=== PATIENT | female | born 1935 | race Two or more races ===

== ENCOUNTER 2016-07-06 08:59 | Inpatient (IN) | payer MEDICAID, MEDICARE, OTHER ==
[~2016-07-06] VITALS: Ht 167.6 cm; Wt 89.8 kg
--- NOTE | 2016-07-06 00:33 | NUR ---
CECILIO NOTES RECEIVED TELEPHONE CONSENT FOR ANESTHESIA, BLOOD TRANSFUSION, AND PROCEDURE FROM SHANTE SCHMIDT @ . Addendum: 07/07/16 at 0035 by CARA BIRD RN DISREGARD ENTERED WRONG TIME
--- NOTE | 2016-07-06 09:10 | NUR ---
bibra from home due generalkized weakness and fever from home. Patient is awake, alert and oriented however speaks Nepali only. Pt able to follow simple commands thru gestures. Patient denies n/v. Skin is warm to touch and non diaphoretic. patient febrile at this time. Gowned and placed on tele monitor. IV inserted to rac #20. Blood sample sent to lab
--- NOTE | 2016-07-06 09:20 | NUR ---
urine sample sent to lab
[2016-07-06] MEDS ORDERED: IV NS 0.9% 1,000 ML ONE (09:23)
[2016-07-06] MEDS ORDERED: IV NS 0.9% 1,000 ML BAG IV ONE (09:30)
[2016-07-06 09:35] LABS: BASOPHILS % (AUTO) 0.1 % (0.0-2.0); HEMATOCRIT 38 % (33-45); HEMOGLOBIN 12.9 g/dL (11.5-14.8); LYMPHOCYTES # (AUTO) 0.4 /CMM (0.8-4.8); LYMPHOCYTES % (AUTO) 10.2 % (20.0-44.0); MEAN CORPUSCULAR HEMOGLOBIN 33 PG (26.0-33.0); MEAN CORPUSCULAR HGB CONC 34 g/dl (31.0-36.0); MEAN CORPUSCULAR VOLUME 97 fL (82-100); MONOCYTES % (AUTO) 0.5 % (2.0-12.0); NEUTROPHILS # (AUTO) 3.7 /CMM (1.8-8.9); NEUTROPHILS % (AUTO) 88.2 % (43.0-81.0); PLATELET COUNT (AUTO) 108 /CMM (150-450); RDW COEFFICIENT OF VARIATION 14.1 (11.5-15.0); RED BLOOD CELL COUNT(AUTO) 3.91 MIL/uL (4.0-5.2); WHITE BLOOD COUNT (AUTO) 4.2 K/uL (4.3-11.0)
[2016-07-06 09:46] LABS: ALANINE AMINOTRANSFERASE 41 U/L (12-78); ALBUMIN 2.8 g/dL (3.4-5.0); ALKALINE PHOSPHATASE 97 U/L (46-116); ASPARTATE AMINOTRANSFERASE 35 U/L (15-37); BILIRUBIN,DIRECT 0.2 mg/dL (0.0-0.2); BILIRUBIN,TOTAL 0.6 mg/dL (0.2-1.0); CALCIUM, SERUM 7.8 mg/dL (8.5-10.1); CARBON DIOXIDE 23 mmol/L (21-32); CHLORIDE 104 mmol/L (98-107); CREATININE 1.2 mg/dL (0.6-1.3); GLUCOSE 169 mg/dL (74-106); POTASSIUM 3.7 mmol/L (3.5-5.1); SODIUM SERUM 142 mmol/L (136-145); TOTAL PROTEIN, SERUM 6.4 g/dL (6.4-8.2); UREA NITROGEN, BLOOD 13 mg/dL (7-18)
[2016-07-06 09:48] LABS: TROPONIN I 0.023 ng/mL (0.00-0.056)
[2016-07-06] MEDS ORDERED: ACETAMINOPHEN 325 MG TABLET ONE (09:49)
[2016-07-06 10:00] LABS: INR 1.02 (0.87-1.13)
[2016-07-06] MEDS ORDERED: ACETAMINOPHEN 325 MG TABLET PO ONE (10:00)
[2016-07-06 10:10] LABS: LACTIC ACID 5.5 mmol/L (0.4-2.0)
[2016-07-06] MEDS ORDERED: CEFTRIAXONE 1GM BAG (ER ONLY) 50 ML IV ONE (10:26)
[2016-07-06] MEDS ORDERED: IV NS 0.9% 2,000 ML ONE (10:27)
[2016-07-06] MEDS ORDERED: IV NS 0.9% 1,000 ML IV ONE ×2 (10:30)
[2016-07-06] MEDS ORDERED: CEFTRIAXONE 1GM BAG (ER ONLY) 1 GM/50 ML PIGGYBACK IV ONE (10:30)
[2016-07-06] MEDS ORDERED: IV SET PRIMARY 1 EA INFUS.SET MC ONE (10:30)
[2016-07-06] MEDS ORDERED: TAMO20TA4 PO (10:36)
[2016-07-06] MEDS ORDERED: ATEN50TA PO (10:36)
[2016-07-06 10:37] LABS: APPEARANCE,URINE Slightly Cloudy (CLEAR); BILIRUBIN,URINE Negative (NEGATIVE); BLOOD, URINE Small Ery/uL (NEGATIVE); COLOR,URINE Yellow (YELLOW); KETONES,URINE Negative (NEGATIVE); LEUKOCYTE ESTERASE ,URINE Small (NEGATIVE); NITRITE, URINE Positive (NEGATIVE); PROTEIN,URINE Negative (NEGATIVE); UGLUCOSE Negative (NEGATIVE); UROBILINOGEN,URINE 0.2 EU/dL (0.2)
[2016-07-06 10:46] LABS: ADD URINE CULTURE YES; BACTERIA,URINE Many /HPF (None Seen); SQUAMOUS EPITHELIAL CELL,UR None Seen /HPF (None Seen); WBC,URINE 21-50 /HPF (0-3)
--- NOTE | 2016-07-06 12:00 | NUR ---
PAGED BINDERY HELPER PANEL.
[2016-07-06] MEDS ORDERED: MAGNESIUM HYDROXIDE 30 ML UDC PO PRN (13:00)
[2016-07-06] MEDS ORDERED: ZOLPIDEM TARTRATE 5 MG TABLET PO PRN (13:00)
[2016-07-06] MEDS ORDERED: ONDANSETRON HCL/PF 4 MG/2 ML VIAL IVP PRN (13:00)
[2016-07-06] MEDS ORDERED: Z GUARD REMEDY 2 OZ OINT TP PRN (13:00)
[2016-07-06] MEDS ORDERED: MAG HYDROX/AL HYDROX/SIMETH 30 ML UDC PO PRN (13:00)
[2016-07-06] MEDS ORDERED: HYDROCODONE/APAP 5/325MG 1 EACH TABLET PO PRN (13:00)
--- NOTE | 2016-07-06 15:13 | NUR ---
Report given to nurse Alegria for nikko
--- NOTE | 2016-07-06 15:16 | NUR ---
patient was transferred to [address] [place] [address]
[2016-07-06] MEDS ORDERED: IV SET PRIMARY PUMP SET 1 EA INFUS.SET MC ONE (15:30)
[2016-07-06] MEDS ORDERED: SECONDARY IV SET 1 EA INFUS.SET MC ONE (15:30)
--- NOTE | 2016-07-06 15:30 | NUR ---
MS RN NOTES RECEIVED PATIENT FROM ER ALERT, ORIENTED X3 KENYAN SPEAKING PATIENT. IN BED RESTING NO SOB OR ACUTE DISTRESS NOTED. ORIENTED TO FLOOR. CALL LIGHT WITHIN REACH. IV ON RIGHT AND LEFT ARM INTACT PATENT. BED IN LOW LOCKED POSITION. PATIENT ABLE TO AMBULATE TO BATHROOM INDEPENDENTLY. BODY ASSESSED SKIN INTACT. WILL CONTINUE TO MONITOR.
[2016-07-06] MEDS: IV 1/2NS 1000 ML 1,000 ML IV PRN (15:35)
[2016-07-06] MEDS: ENOXAPARIN SODIUM 40 MG/0.4 ML DISP.SYRIN SQ SCH (15:44)
[2016-07-06 16:00] VITALS: BP 104/64
--- NOTE | 2016-07-06 16:00 | NUR ---
MS RN NOTES CALL PLACED TO DAUGHTER HERIBERTO ASKED PATIENTS PAST MEDICAL HISTORY. AND MEDICATIONS PATIENT TAKING AT HOME.
--- NOTE | 2016-07-06 18:11 | NUR ---
MS RN NOTES PATIENT IN BED RESTING NO SOB OR ACUTE DISTRESS NOTED. ALL DUE MEDICATIONS GIVEN ALL NEEDS MET. PERIPHERAL IVS INTACT PATENT. WILL ENDORSE TO PM SHIFT ROSSY.
--- NOTE | 2016-07-06 19:30 | NUR ---
RN OPEN NOTES RECEIVED PATIENT AWAKE RESTING IN BED. A/O X3 KYRGYZ SPEAKING. NO SIGNS OF DISTRESS OF DISCOMFORT. BREATHING EVEN AND UNLABORED. DENIES ANY PAIN AT THIS TIME. IV ACCESS IN L HAND AND R WRIST WITH NS 0.45 INFUSIN. NO SIGNS OF REDNESS OR INFILTRATION. BED IN LOW LOCKED POSITION WITH SIDE RAILS X2. CALL LIGHT WITHIN REACH. WILL CONTINUE TO MONITOR.
--- NOTE | 2016-07-06 19:45 | NUR ---
RN NOTES RECEIVED TELEPHONE CONSENT FOR ANESTHESIA, BLOOD TRANSFUSION, AND PROCEDURE FROM SHANTE SCHMIDT @ . Addendum: 07/07/16 at 1431 by CARA BIRD RN DISREGARD DOCUMENT ERROR. WRONG PATIENT
[2016-07-06 20:00] VITALS: BP 137/69
[2016-07-06 20:03] VITALS: BP 137/69
[2016-07-06] MEDS: ACETAMINOPHEN 325 MG TABLET PO PRN (20:29)
[2016-07-06] MEDS: ATENOLOL 50 MG TABLET PO SCH (21:53)
[2016-07-06] MEDS ORDERED: TAMOXIFEN CITRATE 10 MG TABLET PO SCH (22:00)
[2016-07-07 06:48] LABS: BASOPHILS % (AUTO) 0.2 % (0.0-2.0); EOSINOPHILS % (AUTO) 0.1 % (0.0-6.0); HEMATOCRIT 36 % (33-45); LYMPHOCYTES # (AUTO) 0.8 /CMM (0.8-4.8); LYMPHOCYTES % (AUTO) 10.9 % (20.0-44.0); MEAN CORPUSCULAR HEMOGLOBIN 33 PG (26.0-33.0); MEAN CORPUSCULAR HGB CONC 34 g/dl (31.0-36.0); MEAN CORPUSCULAR VOLUME 98 fL (82-100); MONOCYTES # (AUTO) 0.3 /CMM (0.1-1.30); NEUTROPHILS # (AUTO) 6.3 /CMM (1.8-8.9); NEUTROPHILS % (AUTO) 84.8 % (43.0-81.0); PLATELET COUNT (AUTO) 86 /CMM (150-450); RDW COEFFICIENT OF VARIATION 14.3 (11.5-15.0); RED BLOOD CELL COUNT(AUTO) 3.66 MIL/uL (4.0-5.2); WHITE BLOOD COUNT (AUTO) 7.5 K/uL (4.3-11.0)
[2016-07-07 07:11] LABS: CALCIUM, SERUM 7.7 mg/dL (8.5-10.1); MAGNESIUM 1.6 mg/dL (1.8-2.4); PHOSPHORUS 2.6 mg/dL (2.5-4.9); POTASSIUM 3.6 mmol/L (3.5-5.1); THYROID STIMULATING HORMONE 2.73 uIU/mL (0.358-3.74)
--- NOTE | 2016-07-07 07:31 | NUR ---
RN CLOSING NOTES PATIENT RESTING IN BED. A/O X3 BARBADIAN SPEAKING. NO SIGNS OF DISTRESS OF DISCOMFORT. BREATHING EVEN AND UNLABORED. DENIES ANY PAIN AT THIS TIME. IV ACCESS IN L HAND AND R WRIST WITH NS 0.45 INFUSING NO SIGNS OF REDNESS OR INFILTRATION. ALL NEEDS MET THROUGHOUT SHIFT. NO SIGNIFICANT CHANGES THROUGH THE NIGHT. BED IN LOW LOCKED POSITION WITH SIDE RAILS X2. CALL LIGHT WITHIN REACH. ENDORSED TO AM SHIFT FOR ROSSY.
[2016-07-07 08:00] VITALS: BP 96/50
--- NOTE | 2016-07-07 08:00 | NUR ---
RN AM NOTES PATIENT RECEIVED IN STABLE CONDITION, ASLEEP BUT AROUSABLE, NO COMPLAINTS OF PAIN OR DISCOMFORT. PIV LINES PATENT AND RUNNING FLUIDS. PATIENT TOLERATING FLUIDS WELL. WILL CONTINUE TO MONITOR
[2016-07-07] MEDS ORDERED: IV SET PRIMARY PUMP SET 1 EA INFUS.SET MC ONE (09:13)
[2016-07-07] MEDS: IV 1/2NS 1000 ML 1,000 ML IV PRN (09:22)
[2016-07-07] MEDS: PANTOPRAZOLE 40 MG TABLET.DR PO SCH (09:22)
[2016-07-07] MEDS: ACETAMINOPHEN 325 MG TABLET PO PRN ×2 (09:57→21:08)
--- NOTE | 2016-07-07 09:57 | NUR ---
PATIENT HAS HEADACHE PAIN LEVEL OF 3, ADMINISTERED TYLENOL PRN
[2016-07-07 10:12] LABS: BAND % (MANUAL) 3 % (0.0-5.0); NEUTROPHILS % (MANUAL) 85 (42-76)
[2016-07-07 10:13] LABS: ANISOCYTOSIS 1+; BASOPHILS % (MANUAL) 0 % (0.0-2.0); EOSINOPHILS % (MANUAL) 0 % (0-4); LYMPHOCYTES % (MANUAL) 11 % (16-48); MONOCYTES % (MANUAL) 1 % (0-11.0); PLATELET ESTIMATE DECREASED
[2016-07-07] MEDS ORDERED: ZOLPIDEM TARTRATE 5 MG TABLET PO PRN (11:00)
[2016-07-07] MEDS: Magnesium 1GM/D5W 100ML PREMIX 100 ML IV SCH ×3 (11:30→17:22)
[2016-07-07] MEDS ORDERED: SECONDARY IV SET 1 EA INFUS.SET MC ONE (13:16)
[2016-07-07] MEDS: ENOXAPARIN SODIUM 40 MG/0.4 ML DISP.SYRIN SQ SCH ×2 (15:00→17:19)
[2016-07-07 16:00] VITALS: BP 100/64
--- NOTE | 2016-07-07 17:20 | NUR ---
PLATELETS 86, PT, APTT, INR WNL, ADMINISTERED ENOXAPARIN ORDERED
--- NOTE | 2016-07-07 17:37 | NUR ---
PATIENT USING RESTROOM FREQUENTLY AND WANTING TO STRETCH. INFUSIONS INTERRUPTED, BUT STILL ADMINISTERING MG DOSES ORDERED Addendum: 07/07/16 at 1738 by AYLIN BEAVERS RN WILL ENDORSE TO NEXT SHIFT
--- NOTE | 2016-07-07 18:19 | NUR ---
RN PM NOTES PATIENT FINISHING DINNER, CALM AND RELAXED IN BED. TOLERATING IV FLUIDS WELL. TOLERATING DIET WELL. NO COMPLAINTS OF PAIN OR HEADACHE. NO SOB OR DISTRESS. MG DRIP STILL INFUSING WELL. WILL ENDORSE TO NEXT SHIFT.
--- NOTE | 2016-07-07 19:10 | NUR ---
RN OPEN NOTES RECEIVED PATIENT AWAKE RESTING IN BED. A/O X3 SYRIAC SPEAKING BUT ABLE TO UNDERSTAND KISWAHILI. NO SIGNS OF DISTRESS OR DISCOMFORT. BREATHING EVEN AND UNLABORED. DENIES ANY PAIN AT THIS TIME. IV ACCESS IN L HAND AND R WRIST WITH MAG CURRENTLY INFUSING. NO SIGNS OF REDNESS OR INFILTRATION. BED IN LOW LOCKED POSITION WITH SIDE RAILS X2. CALL LIGHT WITHIN REACH. WILL CONTINUE TO MONITOR.
[2016-07-07 20:00] VITALS: BP 154/78
[2016-07-07] MEDS: ATENOLOL 50 MG TABLET PO SCH (21:08)
[2016-07-07] MEDS: TAMOXIFEN CITRATE 10 MG TABLET PO SCH (21:09)
--- NOTE | 2016-07-07 21:15 | NUR ---
RN NOTES ADMINISTERED TYLENOL 650 MG PRN FOR ELEV TEMP OF 103.0. COOL DOWN MEASURES INITIATED. WILL CONTINUE TO MONITOR.
--- NOTE | 2016-07-07 22:20 | NUR ---
RN NOTES PATIENT TEMP NOW 98.5. WILL CONTINUE TO MONITOR.
[2016-07-08 06:11] LABS: BASOPHILS % (AUTO) 0.2 % (0.0-2.0); HEMATOCRIT 33 % (33-45); HEMOGLOBIN 11.3 g/dL (11.5-14.8); LYMPHOCYTES # (AUTO) 1.1 /CMM (0.8-4.8); LYMPHOCYTES % (AUTO) 21.9 % (20.0-44.0); MEAN CORPUSCULAR HEMOGLOBIN 33 PG (26.0-33.0); MEAN CORPUSCULAR HGB CONC 34 g/dl (31.0-36.0); MEAN CORPUSCULAR VOLUME 98 fL (82-100); MONOCYTES # (AUTO) 0.3 /CMM (0.1-1.30); NEUTROPHILS # (AUTO) 3.4 /CMM (1.8-8.9); NEUTROPHILS % (AUTO) 69.9 % (43.0-81.0); PLATELET COUNT (AUTO) 73 /CMM (150-450); RDW COEFFICIENT OF VARIATION 14.1 (11.5-15.0); WHITE BLOOD COUNT (AUTO) 4.9 K/uL (4.3-11.0)
[2016-07-08 06:23] LABS: CALCIUM, SERUM 7.7 mg/dL (8.5-10.1); CREATININE 0.9 mg/dL (0.6-1.3); MAGNESIUM 2.3 mg/dL (1.8-2.4); PHOSPHORUS 2.6 mg/dL (2.5-4.9); POTASSIUM 3.3 mmol/L (3.5-5.1)
[2016-07-08 08:00] VITALS: BP 135/95
--- NOTE | 2016-07-08 08:03 | NUR ---
RN CLOSING NOTES PATIENT AWAKE RESTING IN BED. A/O X3 MICRONESIAN SPEAKING BUT ABLE TO UNDERSTAND DIVEHI. NO SIGNS OF DISTRESS OR DISCOMFORT. BREATHING EVEN AND UNLABORED. DENIES ANY PAIN AT THIS TIME. IV ACCESS IN L HAND AND R WRIST WITH 1/2 NS CURRENTLY INFUSING. NO SIGNS OF REDNESS OR INFILTRATION. ALL NEEDS MET THROUGHOUT SHIFT. PATIENT KEPT CLEAN DRY AND COMFORTABLE. NO SIGNIFICANT CHANGES THROUGH THE NIGHT. BED IN LOW LOCKED POSITION WITH SIDE RAILS X2. CALL LIGHT WITHIN REACH. ENDORSED TO AM SHIFT FOR ROSSY.
--- NOTE | 2016-07-08 08:08 | NUR ---
RN AM NOTES RECEIVED PATIENT IN STABLE CONDITION, AMBULATORY WITH NO SOB. ABLE TO USE RESTROOM UNASSISTED. NO FEVER, NO DISTRESS, NO PAIN. TOLERATING IV FLUIDS WELL. WILL CONTINUE TO MONITOR
[2016-07-08] MEDS: TAMOXIFEN CITRATE 10 MG TABLET PO SCH (09:00)
[2016-07-08] MEDS: PANTOPRAZOLE 40 MG TABLET.DR PO SCH (09:00)
[2016-07-08 10:08] LABS: ANISOCYTOSIS 1+; BAND % (MANUAL) 3 % (0.0-5.0); EOSINOPHILS % (MANUAL) 1 % (0-4); LYMPHOCYTES % (MANUAL) 24 % (16-48); MONOCYTES % (MANUAL) 5 % (0-11.0); NEUTROPHILS % (MANUAL) 67 (42-76); PLATELET ESTIMATE DECREASED
[2016-07-08] MEDS ORDERED: POTASSIUM CHLORIDE 20 MEQ TAB.PRT.SR PO SCH (10:30)
[2016-07-08 12:03] LABS: IRON, SERUM 20 ug/dl (50-175); TOTAL IRON BINDING CAPACITY 231 ug/dl (250-450)
[2016-07-08] MEDS ORDERED: LEVO500T15 PO (12:17)
[2016-07-08] MEDS ORDERED: PNEUMOCOCCAL 23-VAL P-SAC VAC 0.5 ML VIAL SQ ONE (12:30)
[2016-07-08] MEDS ORDERED: FLU VACC QS 2016-17(36MOS+)/PF 0.5 ML DISP.SYRIN IM ONE (12:30)
[2016-07-08] MEDS ORDERED: LEVOFLOXACIN 750 MG /D5W 150ML 750 MG in PREMIX 1 EA IV SCH (13:00)
[2016-07-08] MEDS ORDERED: SECONDARY IV SET 1 EA INFUS.SET MC ONE (13:01)
[2016-07-08 13:14] LABS: D-DIMER 0.82 mg/L(FEU (0.17-0.50); INR 1.02 (0.87-1.13)
[2016-07-08 14:14] LABS: BASOPHILS % (AUTO) 0.2 % (0.0-2.0); EOSINOPHILS % (AUTO) 0.8 % (0.0-6.0); HEMATOCRIT 35 % (33-45); HEMOGLOBIN 11.6 g/dL (11.5-14.8); LYMPHOCYTES # (AUTO) 1.2 /CMM (0.8-4.8); LYMPHOCYTES % (AUTO) 21.4 % (20.0-44.0); MEAN CORPUSCULAR HEMOGLOBIN 33 PG (26.0-33.0); MEAN CORPUSCULAR HGB CONC 34 g/dl (31.0-36.0); MEAN CORPUSCULAR VOLUME 98 fL (82-100); MONOCYTES # (AUTO) 0.5 /CMM (0.1-1.30); MONOCYTES % (AUTO) 8.2 % (2.0-12.0); NEUTROPHILS # (AUTO) 3.9 /CMM (1.8-8.9); NEUTROPHILS % (AUTO) 69.4 % (43.0-81.0); PLATELET COUNT (AUTO) 79 /CMM (150-450); RDW COEFFICIENT OF VARIATION 14.1 (11.5-15.0); RED BLOOD CELL COUNT(AUTO) 3.56 MIL/uL (4.0-5.2); WHITE BLOOD COUNT (AUTO) 5.7 K/uL (4.3-11.0)
[2016-07-08 16:00] VITALS: BP 120/70
--- NOTE | 2016-07-08 18:53 | NUR ---
RN PM NOTES PATIENT TO BE PICKED UP FOR DISCHARGE BY FAMILY WHO WILL BRING HER CLOTHES AND SIGN DISCHARGE PAPERWORK. WILL ENDORSE TO NEXT SHIFT. PATIENT IN STABLE CONDITION, RESTING IN BED.
--- NOTE | 2016-07-08 19:19 | NUR ---
SQL SSRS DEVELOPER NOTES PATIENT LEFT WITH DAUGHTER VIA PRIVATE CAR WITH BELONGINGS AND DISCHARGE PACKET WITH RX. NO SOB, DISTRESS, PAIN OR FEVER NOTED. PATIENT LEFT FACILITY SAFELY, ESCORTED BY STAFF MEMBER AND DAUGHTER IN WHEELCHAIR
== END 2016-07-08 19:10 | disposition home or self-care (01) | DRG 690 ==
LOC: ER 09:02 → TELE 14:47 → MED 14:48
DX: N39.0 Urinary tract infection, site not specified (principal); E44.0 Moderate protein-calorie malnutrition; D68.59 Other primary thrombophilia; J98.11 Atelectasis; Z90.10 Acquired absence of unspecified breast and nipple; I11.9 Hypertensive heart disease without heart failure; Z85.3 Personal history of malignant neoplasm of breast; D69.6 Thrombocytopenia, unspecified; B96.20 Unspecified Escherichia coli [E. coli] as the cause of diseases classified elsewhere; E87.6 Hypokalemia; E66.9 Obesity, unspecified; Z79.810 Long term (current) use of selective estrogen receptor modulators (SERMs); Z87.440 Personal history of urinary (tract) infections
CPT/HCPCS: 36415; 71010-TC; 80048-TC; 80061-TC; 80076-TC; 81000-TC; 83540-TC; 83605-TC; 83735-TC; 84100-TC; 84443-TC; 84484-TC; 85025-TC; 85396; 85730-TC; 87040-TC; 87081-TC; 87086-TC; 87186-TC; 90732; A4216; A4606; J0696; J1650; J1956; J3475; J3490; J7030; Q2036; Z7610

== ENCOUNTER 2017-09-01 09:27 | Inpatient (IN) | payer OTHER ==
[~2017-09-01] VITALS: Ht 160 cm; Wt 88.9 kg
[~2017-09-01 09:27] MED LIST: ATEN50TA PO; LEVO500T75 PO; TAMO20TA4 PO
[2017-09-01] MEDS ORDERED: ACETAMINOPHEN ES 500 MG TABLET ONE (09:33)
[2017-09-01] MEDS ORDERED: ALPR0.5T PO (09:41)
[2017-09-01] MEDS ORDERED: PANT40TA2 PO (09:41)
[2017-09-01 09:50] LABS: BASOPHILS # (AUTO) 0.1 /CMM (0.0-0.2); BASOPHILS % (AUTO) 1.1 % (0.0-2.0); EOSINOPHILS % (AUTO) 0.6 % (0.0-6.0); HEMATOCRIT 40 % (33-45); LYMPHOCYTES # (AUTO) 0.9 /CMM (0.8-4.8); LYMPHOCYTES % (AUTO) 15.6 % (20.0-44.0); MEAN CORPUSCULAR HGB CONC 33 g/dl (31.0-36.0); MEAN CORPUSCULAR VOLUME 95 fL (82-100); MONOCYTES # (AUTO) 0.1 /CMM (0.1-1.30); MONOCYTES % (AUTO) 1.3 % (2.0-12.0); NEUTROPHILS # (AUTO) 4.7 /CMM (1.8-8.9); NEUTROPHILS % (AUTO) 81.4 % (43.0-81.0); PLATELET COUNT (AUTO) 149 /CMM (150-450); RDW COEFFICIENT OF VARIATION 13.7 (11.5-15.0); RED BLOOD CELL COUNT(AUTO) 4.18 MIL/uL (4.0-5.2); WHITE BLOOD COUNT (AUTO) 5.8 K/uL (4.3-11.0)
[2017-09-01 09:58] LABS: CARBON DIOXIDE 18 mmol/L (21-32); CHLORIDE 103 mmol/L (98-107); CREATININE 1.4 mg/dL (0.6-1.3); GLUCOSE 178 mg/dL (74-106); POTASSIUM 3.8 mmol/L (3.5-5.1); SODIUM SERUM 137 mmol/L (136-145); UREA NITROGEN, BLOOD 17 mg/dL (7-18)
[2017-09-01] MEDS ORDERED: IV NS 0.9% 1,000 ML BAG IV ONE (10:00)
[2017-09-01] MEDS ORDERED: MEROPENEM 1 G in IV NS 0.9% 100 ML IV ONE (10:00)
[2017-09-01] MEDS ORDERED: ACETAMINOPHEN ES 500 MG TABLET PO ONE (10:00)
[2017-09-01 10:03] LABS: INR 1.03 (0.87-1.13)
[2017-09-01 10:05] LABS: TROPONIN I < 0.017 ng/mL (0.00-0.056)
[2017-09-01 10:14] LABS: ALANINE AMINOTRANSFERASE 47 U/L (12-78); ALBUMIN 2.8 g/dL (3.4-5.0); ALKALINE PHOSPHATASE 111 U/L (46-116); ASPARTATE AMINOTRANSFERASE 50 U/L (15-37); BILIRUBIN,DIRECT 0.2 mg/dL (0.0-0.2); BILIRUBIN,TOTAL 0.7 mg/dL (0.2-1.0); TOTAL PROTEIN, SERUM 7.1 g/dL (6.4-8.2)
[2017-09-01 10:15] LABS: APPEARANCE,URINE Slightly Cloudy (CLEAR); BILIRUBIN,URINE Negative (NEGATIVE); BLOOD, URINE Trace-intact Ery/uL (NEGATIVE); COLOR,URINE Yellow (YELLOW); KETONES,URINE Trace (NEGATIVE); LEUKOCYTE ESTERASE ,URINE Small (NEGATIVE); NITRITE, URINE Positive (NEGATIVE); PROTEIN,URINE Trace mg/dl (NEGATIVE); UGLUCOSE Negative (NEGATIVE); UROBILINOGEN,URINE 0.2 EU/dL (0.2)
[2017-09-01 10:30] LABS: BACTERIA,URINE Many /HPF (None Seen); SQUAMOUS EPITHELIAL CELL,UR Few /HPF (None Seen); WBC,URINE 20-50 /HPF (0-3)
[2017-09-01 12:00] VITALS: BP 122/55
[2017-09-01] MEDS ORDERED: ALPRAZOLAM 0.5 MG TABLET PO PRN (12:30)
[2017-09-01] MEDS ORDERED: IV NS 0.9% 1,000 ML BAG IV PRN (12:30)
[2017-09-01] MEDS ORDERED: HYDROCODONE/APAP 5/325MG 1 EACH TABLET PO PRN (12:30)
[2017-09-01] MEDS ORDERED: CEFTRIAXONE 1 G in IV D5W 50 ML IV SCH (13:00)
[2017-09-01] MEDS: IV NS 0.9% 1,000 ML IV PRN (14:20)
[2017-09-01] MEDS: PANTOPRAZOLE 40 MG VIAL IV SCH (15:30)
[2017-09-01] MEDS ORDERED: ONDANSETRON HCL/PF 4 MG/2 ML VIAL IV PRN (15:30)
[2017-09-01 16:00] VITALS: BP 102/53
[2017-09-01 20:00] VITALS: BP 112/65
[2017-09-01] MEDS: ACETAMINOPHEN 325 MG TABLET PO PRN (20:24)
[2017-09-01] MEDS: ATENOLOL 50 MG TABLET PO SCH (22:00)
[2017-09-01] MEDS: TAMOXIFEN CITRATE 10 MG TABLET PO SCH (22:16)
[2017-09-02] VITALS (8 sets, daily range): BP systolic 92–131; BP diastolic 6–67
[2017-09-02] MEDS ORDERED: ACETAMINOPHEN 325 MG TABLET PO ONE (02:00)
[2017-09-02] MEDS: IV NS 0.9% 1,000 ML IV PRN ×2 (03:54→18:37)
[2017-09-02] MEDS ORDERED: PIPERACILLIN /TAZOBACTAM 3.375 G VIAL IV ONE (05:22)
[2017-09-02] MEDS: PIPERACILLIN /TAZOBACTAM 3.375 G in IV D5W 50 ML IV SCH ×4 (05:29→23:22)
[2017-09-02 06:41] LABS: CALCIUM, SERUM 7.6 mg/dL (8.5-10.1); CARBON DIOXIDE 23 mmol/L (21-32); CHLORIDE 107 mmol/L (98-107); CREATININE 0.9 mg/dL (0.6-1.3); GLUCOSE 133 mg/dL (74-106); POTASSIUM 3.5 mmol/L (3.5-5.1); SODIUM SERUM 140 mmol/L (136-145); UREA NITROGEN, BLOOD 11 mg/dL (7-18)
[2017-09-02 06:50] LABS: EOSINOPHILS % (AUTO) 0.2 % (0.0-6.0); HEMATOCRIT 31 % (33-45); HEMOGLOBIN 10.3 g/dL (11.5-14.8); LYMPHOCYTES # (AUTO) 0.8 /CMM (0.8-4.8); LYMPHOCYTES % (AUTO) 9.9 % (20.0-44.0); MEAN CORPUSCULAR HGB CONC 34 g/dl (31.0-36.0); MEAN CORPUSCULAR VOLUME 95 fL (82-100); MONOCYTES # (AUTO) 0.3 /CMM (0.1-1.30); MONOCYTES % (AUTO) 3.4 % (2.0-12.0); NEUTROPHILS # (AUTO) 7.3 /CMM (1.8-8.9); NEUTROPHILS % (AUTO) 86.5 % (43.0-81.0); PLATELET COUNT (AUTO) 96 /CMM (150-450); RDW COEFFICIENT OF VARIATION 14.9 (11.5-15.0); RED BLOOD CELL COUNT(AUTO) 3.22 MIL/uL (4.0-5.2); WHITE BLOOD COUNT (AUTO) 8.4 K/uL (4.3-11.0)
[2017-09-02] MEDS ORDERED: PANTOPRAZOLE 40 MG TABLET.DR PO SCH (07:30)
[2017-09-02 08:51] LABS: BAND % (MANUAL) 6 % (0.0-5.0); LYMPHOCYTES % (MANUAL) 11 % (16-48); MONOCYTES % (MANUAL) 3 % (0-11.0); NEUTROPHILS % (MANUAL) 80 (42-76)
[2017-09-02] MEDS: PANTOPRAZOLE 40 MG VIAL IV SCH (17:38)
[2017-09-02] MEDS: ACETAMINOPHEN 325 MG TABLET PO PRN (17:42)
[2017-09-02] MEDS: ATENOLOL 50 MG TABLET PO SCH (21:50)
[2017-09-02] MEDS: TAMOXIFEN CITRATE 10 MG TABLET PO SCH (21:50)
[2017-09-03] MEDS: PIPERACILLIN /TAZOBACTAM 3.375 G in IV D5W 50 ML IV SCH (05:07)
[2017-09-03] MEDS: IV NS 0.9% 1,000 ML IV PRN (05:11)
[2017-09-03 06:35] LABS: CALCIUM, SERUM 7.4 mg/dL (8.5-10.1); CARBON DIOXIDE 24 mmol/L (21-32); CHLORIDE 108 mmol/L (98-107); CREATININE 0.8 mg/dL (0.6-1.3); GLUCOSE 126 mg/dL (74-106); POTASSIUM 3.6 mmol/L (3.5-5.1); SODIUM SERUM 141 mmol/L (136-145); UREA NITROGEN, BLOOD 6 mg/dL (7-18)
[2017-09-03 06:41] LABS: BASOPHILS % (AUTO) 0.2 % (0.0-2.0); EOSINOPHILS % (AUTO) 1.4 % (0.0-6.0); HEMATOCRIT 32 % (33-45); HEMOGLOBIN 10.9 g/dL (11.5-14.8); LYMPHOCYTES # (AUTO) 1.1 /CMM (0.8-4.8); LYMPHOCYTES % (AUTO) 20.7 % (20.0-44.0); MEAN CORPUSCULAR HGB CONC 34 g/dl (31.0-36.0); MEAN CORPUSCULAR VOLUME 95 fL (82-100); MONOCYTES # (AUTO) 0.4 /CMM (0.1-1.30); MONOCYTES % (AUTO) 8.1 % (2.0-12.0); NEUTROPHILS # (AUTO) 3.8 /CMM (1.8-8.9); NEUTROPHILS % (AUTO) 69.6 % (43.0-81.0); PLATELET COUNT (AUTO) 96 /CMM (150-450); RDW COEFFICIENT OF VARIATION 15.1 (11.5-15.0); RED BLOOD CELL COUNT(AUTO) 3.38 MIL/uL (4.0-5.2); WHITE BLOOD COUNT (AUTO) 5.5 K/uL (4.3-11.0)
[2017-09-03 08:00] VITALS: BP 118/66
[2017-09-03] MEDS ORDERED: LEVO500T75 PO (08:18)
[2017-09-03 09:28] LABS: BAND % (MANUAL) 3 % (0.0-5.0); EOSINOPHILS % (MANUAL) 3 % (0-4); LYMPHOCYTES % (MANUAL) 19 % (16-48); MONOCYTES % (MANUAL) 9 % (0-11.0); NEUTROPHILS % (MANUAL) 66 (42-76)
== END 2017-09-03 10:15 | disposition home or self-care (01) | DRG 872 ==
LOC: ER 09:28 → TELE 11:46 → MED 09-02 09:27
PROVIDERS: ADMIT Internal Medicine; ATTEND Internal Medicine
DX: A41.9 Sepsis, unspecified organism (principal); N17.9 Acute kidney failure, unspecified; E87.2 Acidosis; E86.0 Dehydration; N39.0 Urinary tract infection, site not specified; I10 Essential (primary) hypertension; Z85.3 Personal history of malignant neoplasm of breast; Z90.10 Acquired absence of unspecified breast and nipple; Z79.810 Long term (current) use of selective estrogen receptor modulators (SERMs)
CPT/HCPCS: 36415; 71045-TC; 76770-TC; 80048-TC; 80076-TC; 81000-TC; 83605-TC; 84484-TC; 85025-TC; 85730-TC; 87040-TC; 87081-TC; 87086-TC; 87186-TC; A4216; A4606; C9113; J0696; J2185; J2543; J7030; J7060; Z7610

== ENCOUNTER 2018-04-20 12:57 | Inpatient (IN) | payer OTHER ==
[2018-04-20] VITALS (12 sets, daily range): BP systolic 88–127; BP diastolic 41–65
[~2018-04-20] VITALS: Ht 157.5 cm; Wt 74.8 kg
[~2018-04-20 12:57] MED LIST changes: +ALPR0.5T PO; +PANT40TA2 PO
[2018-04-20 13:34] LABS: BASOPHILS % (AUTO) 0.7 % (0.0-2.0); EOSINOPHILS % (AUTO) 1.8 % (0.0-6.0); HEMATOCRIT 24 % (33-45); LYMPHOCYTES % (AUTO) 16.6 % (20.0-44.0); MEAN CORPUSCULAR HGB CONC 29 g/dl (31.0-36.0); MEAN CORPUSCULAR VOLUME 74 fL (82-100); MONOCYTES # (AUTO) 0.6 /CMM (0.1-1.30); MONOCYTES % (AUTO) 9.5 % (2.0-12.0); NEUTROPHILS # (AUTO) 4.4 /CMM (1.8-8.9); NEUTROPHILS % (AUTO) 71.4 % (43.0-81.0); PLATELET COUNT (AUTO) 204 /CMM (150-450); RED BLOOD CELL COUNT(AUTO) 3.28 MIL/uL (4.0-5.2); WHITE BLOOD COUNT (AUTO) 6.2 K/uL (4.3-11.0)
[2018-04-20 13:35] LABS: HEMOGLOBIN 6.9 g/dL (11.5-14.8)
[2018-04-20 13:44] LABS: CALCIUM, SERUM 7.9 mg/dL (8.5-10.1); CARBON DIOXIDE 22 mmol/L (21-32); CHLORIDE 106 mmol/L (98-107); CREATININE 0.9 mg/dL (0.6-1.3); GLUCOSE 205 mg/dL (74-106); POTASSIUM 4.1 mmol/L (3.5-5.1); SODIUM SERUM 140 mmol/L (136-145); UREA NITROGEN, BLOOD 15 mg/dL (7-18)
[2018-04-20] MEDS ORDERED: ERGO500040 PO (13:47)
[2018-04-20 13:50] LABS: ALANINE AMINOTRANSFERASE 26 U/L (12-78); ALBUMIN 2.3 g/dL (3.4-5.0); ALKALINE PHOSPHATASE 101 U/L (46-116); ASPARTATE AMINOTRANSFERASE 30 U/L (15-37); BILIRUBIN,DIRECT 0.1 mg/dL (0.0-0.2); BILIRUBIN,TOTAL 0.2 mg/dL (0.2-1.0); TOTAL PROTEIN, SERUM 6.2 g/dL (6.4-8.2)
[2018-04-20] MEDS ORDERED: FAMOTIDINE/PF INJ 20 MG/2 ML VIAL IV ONE ×2 (14:30→14:45)
[2018-04-20 14:58] LABS: EOSINOPHILS % (MANUAL) 1 % (0-4); LYMPHOCYTES % (MANUAL) 16 % (16-48); MONOCYTES % (MANUAL) 2 % (0-11.0); NEUTROPHILS % (MANUAL) 81 (42-76)
[2018-04-20] MEDS ORDERED: ONDANSETRON HCL/PF 4 MG/2 ML VIAL IVP PRN (17:30)
[2018-04-20] MEDS ORDERED: ALPRAZOLAM 0.5 MG TABLET PO PRN (17:30)
[2018-04-20] MEDS ORDERED: Z GUARD REMEDY 2 OZ OINT TP PRN (17:30)
[2018-04-20] MEDS: ACETAMINOPHEN 325 MG TABLET PO PRN (17:55)
[2018-04-20] MEDS: TAMOXIFEN CITRATE 10 MG TABLET PO SCH (21:44)
[2018-04-20] MEDS: ATENOLOL 50 MG TABLET PO SCH (21:47)
[2018-04-20 22:30] LABS: HEMATOCRIT 24 % (33-45); HEMOGLOBIN 7.4 g/dL (11.5-14.8); MEAN CORPUSCULAR HGB CONC 31 g/dl (31.0-36.0); MEAN CORPUSCULAR VOLUME 72 fL (82-100); PLATELET COUNT (AUTO) 182 /CMM (150-450); RED BLOOD CELL COUNT(AUTO) 3.32 MIL/uL (4.0-5.2)
[2018-04-21] VITALS: BP 98/59
[2018-04-21 03:51] LABS: BASOPHILS % (AUTO) 0.7 % (0.0-2.0); EOSINOPHILS % (AUTO) 1.7 % (0.0-6.0); HEMATOCRIT 25 % (33-45); HEMOGLOBIN 7.6 g/dL (11.5-14.8); LYMPHOCYTES # (AUTO) 1.1 /CMM (0.8-4.8); LYMPHOCYTES % (AUTO) 21.6 % (20.0-44.0); MEAN CORPUSCULAR HGB CONC 31 g/dl (31.0-36.0); MEAN CORPUSCULAR VOLUME 73 fL (82-100); MONOCYTES # (AUTO) 0.4 /CMM (0.1-1.30); MONOCYTES % (AUTO) 9.1 % (2.0-12.0); NEUTROPHILS # (AUTO) 3.3 /CMM (1.8-8.9); NEUTROPHILS % (AUTO) 66.9 % (43.0-81.0); PLATELET COUNT (AUTO) 172 /CMM (150-450); RED BLOOD CELL COUNT(AUTO) 3.38 MIL/uL (4.0-5.2); WHITE BLOOD COUNT (AUTO) 4.9 K/uL (4.3-11.0)
[2018-04-21 04:00] VITALS: BP 116/61
[2018-04-21 04:19] LABS: IRON, SERUM 29 ug/dl (50-175); TOTAL IRON BINDING CAPACITY 336 ug/dl (250-450)
[2018-04-21 04:25] LABS: CHOLESTEROL 71 mg/dL (<200); HDL CHOLESTEROL 20 mg/dL (40-60); LDL 47 mg/dL (0-99); THYROID STIMULATING HORMONE 6.376 uIU/mL (0.358-3.74); TRIGLYCERIDES 46 mg/dL (30-150)
[2018-04-21 05:37] LABS: ALANINE AMINOTRANSFERASE 22 U/L (12-78); ALBUMIN 2.1 g/dL (3.4-5.0); ALKALINE PHOSPHATASE 69 U/L (46-116); ASPARTATE AMINOTRANSFERASE 38 U/L (15-37); BILIRUBIN,TOTAL 0.6 mg/dL (0.2-1.0); CALCIUM, SERUM 7.8 mg/dL (8.5-10.1); CARBON DIOXIDE 23 mmol/L (21-32); CHLORIDE 108 mmol/L (98-107); CREATININE 0.9 mg/dL (0.6-1.3); GLUCOSE 123 mg/dL (74-106); MAGNESIUM 1.8 mg/dL (1.8-2.4); PHOSPHORUS 2.2 mg/dL (2.5-4.9); POTASSIUM 3.6 mmol/L (3.5-5.1); SODIUM SERUM 142 mmol/L (136-145); TOTAL PROTEIN, SERUM 5.7 g/dL (6.4-8.2); UREA NITROGEN, BLOOD 10 mg/dL (7-18)
[2018-04-21] MEDS ORDERED: PANTOPRAZOLE 40 MG TABLET.DR PO SCH (07:30)
[2018-04-21 08:00] VITALS: BP 116/60
[2018-04-21] MEDS: ACETAMINOPHEN 325 MG TABLET PO PRN (08:01)
[2018-04-21] MEDS: PANTOPRAZOLE 40 MG VIAL IV SCH ×2 (08:02→16:39)
[2018-04-21 09:25] LABS: HEMATOCRIT 24 % (33-45); HEMOGLOBIN 7.4 g/dL (11.5-14.8); MEAN CORPUSCULAR HGB CONC 31 g/dl (31.0-36.0); MEAN CORPUSCULAR VOLUME 73 fL (82-100); PLATELET COUNT (AUTO) 173 /CMM (150-450); RED BLOOD CELL COUNT(AUTO) 3.29 MIL/uL (4.0-5.2); WHITE BLOOD COUNT (AUTO) 4.4 K/uL (4.3-11.0)
[2018-04-21] MEDS ORDERED: K PHOS NEUTRAL 250 MG TABLET PO ONE (11:00)
[2018-04-21] MEDS ORDERED: METOCLOPRAMIDE HCL 10 MG/2 ML VIAL IV PRN (11:30)
[2018-04-21 12:00] VITALS: BP 108/66
[2018-04-21 16:00] VITALS: BP 131/61
[2018-04-21] MEDS: HYDROCODONE/APAP 5/325MG 1 EACH TABLET PO PRN (16:41)
[2018-04-21 19:30] LABS: HEMOGLOBIN 7.4 g/dL (11.5-14.8)
[2018-04-21 19:42] LABS: APPEARANCE,URINE CLOUDY (CLEAR); BILIRUBIN,URINE NEGATIVE (NEGATIVE); BLOOD, URINE NEGATIVE Ery/uL (NEGATIVE); COLOR,URINE YELLOW (YELLOW); KETONES,URINE NEGATIVE (NEGATIVE); LEUKOCYTE ESTERASE ,URINE 1+ (NEGATIVE); NITRITE, URINE POSITIVE (NEGATIVE); PROTEIN,URINE NEGATIVE (NEGATIVE); UGLUCOSE TRACE mg/dL (NEGATIVE); UROBILINOGEN,URINE 0.2 EU/dL (0.2)
[2018-04-21 20:00] VITALS: BP 114/57
[2018-04-21] MEDS ORDERED: PEG 3350/NA SULF,BICARB,CL/KCL 4,000 ML BOTTLE PO ONE (20:00)
[2018-04-21 21:36] LABS: BACTERIA,URINE 2+ /HPF (None Seen); RBC,URINE 0-2 /HPF (0-2); SQUAMOUS EPITHELIAL CELL,UR Few /HPF (None Seen)
[2018-04-21] MEDS: TAMOXIFEN CITRATE 10 MG TABLET PO SCH (22:09)
[2018-04-21] MEDS: ATENOLOL 50 MG TABLET PO SCH (22:12)
[2018-04-22] VITALS (9 sets, daily range): BP systolic 103–128; BP diastolic 51–69
[2018-04-22] MEDS ORDERED: SORBITOL SOLUTION 30 ML PO ONE (06:00)
[2018-04-22 07:25] LABS: BASOPHILS % (AUTO) 0.5 % (0.0-2.0); EOSINOPHILS % (AUTO) 1.5 % (0.0-6.0); HEMATOCRIT 27 % (33-45); HEMOGLOBIN 8.2 g/dL (11.5-14.8); LYMPHOCYTES # (AUTO) 1.3 /CMM (0.8-4.8); MEAN CORPUSCULAR HGB CONC 31 g/dl (31.0-36.0); MEAN CORPUSCULAR VOLUME 73 fL (82-100); MONOCYTES # (AUTO) 0.5 /CMM (0.1-1.30); MONOCYTES % (AUTO) 8.3 % (2.0-12.0); NEUTROPHILS # (AUTO) 4.1 /CMM (1.8-8.9); NEUTROPHILS % (AUTO) 67.7 % (43.0-81.0); PLATELET COUNT (AUTO) 190 /CMM (150-450); RED BLOOD CELL COUNT(AUTO) 3.64 MIL/uL (4.0-5.2)
[2018-04-22 07:42] LABS: CALCIUM, SERUM 7.5 mg/dL (8.5-10.1); CARBON DIOXIDE 23 mmol/L (21-32); CHLORIDE 107 mmol/L (98-107); GLUCOSE 142 mg/dL (74-106); MAGNESIUM 1.7 mg/dL (1.8-2.4); PHOSPHORUS 2.1 mg/dL (2.5-4.9); POTASSIUM 3.3 mmol/L (3.5-5.1); SODIUM SERUM 141 mmol/L (136-145); UREA NITROGEN, BLOOD 7 mg/dL (7-18)
[2018-04-22] MEDS: PANTOPRAZOLE 40 MG VIAL IV SCH ×2 (08:46→16:22)
[2018-04-22] MEDS ORDERED: ERGOCALCIFEROL (VITAMIN D 2) 50,000 UNIT CAPSULE PO SCH (09:00)
[2018-04-22] MEDS ORDERED: POTASSIUM CHLORIDE 20 MEQ TAB.PRT.SR PO SCH (10:00)
[2018-04-22] MEDS: Magnesium 1GM/D5W 100ML PREMIX 100 ML IV SCH ×2 (10:24→11:24)
[2018-04-22] MEDS ORDERED: MIDAZOLAM HCL 2 MG/2ML VIAL ONE (12:13)
[2018-04-22] MEDS ORDERED: ANESTHESIA TRAY IN PYXIS 1 EA TRAY MC ONE (12:46)
[2018-04-22 12:52] LABS: BAND % (MANUAL) 2 % (0.0-5.0); EOSINOPHILS % (MANUAL) 3 % (0-4); LYMPHOCYTES % (MANUAL) 16 % (16-48); MONOCYTES % (MANUAL) 2 % (0-11.0); NEUTROPHILS % (MANUAL) 76 (42-76); PROMYELOCYTES % 1 % (0-0)
[2018-04-22] MEDS ORDERED: K PHOS NEUTRAL 250 MG TABLET PO ONE (13:30)
[2018-04-22] MEDS: ACETAMINOPHEN 325 MG TABLET PO PRN (16:22)
[2018-04-22] MEDS: ATENOLOL 50 MG TABLET PO SCH (22:00)
[2018-04-22] MEDS: TAMOXIFEN CITRATE 10 MG TABLET PO SCH (22:18)
[2018-04-23] VITALS (7 sets, daily range): BP systolic 101–124; BP diastolic 57–67
[2018-04-23 06:31] LABS: CALCIUM, SERUM 7.2 mg/dL (8.5-10.1); CARBON DIOXIDE 25 mmol/L (21-32); CHLORIDE 110 mmol/L (98-107); CREATININE 0.8 mg/dL (0.6-1.3); GLUCOSE 114 mg/dL (74-106); MAGNESIUM 2.3 mg/dL (1.8-2.4); POTASSIUM 3.9 mmol/L (3.5-5.1); SODIUM SERUM 143 mmol/L (136-145); UREA NITROGEN, BLOOD 8 mg/dL (7-18)
[2018-04-23] MEDS: HYDROCODONE/APAP 5/325MG 1 EACH TABLET PO PRN (07:25)
[2018-04-23] MEDS: PANTOPRAZOLE 40 MG VIAL IV SCH ×2 (08:21→16:59)
== END 2018-04-23 18:45 | disposition home or self-care (01) | DRG 375 ==
LOC: ER 13:00 → TELE1 16:21
PROVIDERS: ADMIT Nurse Practitioner Acute Care
PROC: 30233N1 Transfusion of Nonautologous Red Blood Cells into Peripheral Vein, Percutaneous Approach (ICD-10-PCS; 2018-04-20)
PROC: 0DB78ZX Excision of Stomach, Pylorus, Via Natural or Artificial Opening Endoscopic, Diagnostic (ICD-10-PCS; principal; 2018-04-22)
PROC: 0DJD8ZZ Inspection of Lower Intestinal Tract, Via Natural or Artificial Opening Endoscopic (ICD-10-PCS; 2018-04-22)
DX: C16.3 Malignant neoplasm of pyloric antrum (principal); K92.2 Gastrointestinal hemorrhage, unspecified; D62 Acute posthemorrhagic anemia; K92.89 Other specified diseases of the digestive system; Z85.3 Personal history of malignant neoplasm of breast; Z90.11 Acquired absence of right breast and nipple; I10 Essential (primary) hypertension; E55.9 Vitamin D deficiency, unspecified; K21.9 Gastro-esophageal reflux disease without esophagitis; D50.9 Iron deficiency anemia, unspecified; Z79.810 Long term (current) use of selective estrogen receptor modulators (SERMs)
CPT/HCPCS: 36415; 71045-TC; 80048-TC; 80053-TC; 80061-TC; 80076-TC; 81000-TC; 83540-TC; 83735-TC; 84100-TC; 84443-TC; 85025-TC; 85027-TC; 85730-TC; 86850-TC; 86921-TC; 87081-TC; 87086-TC; 87186-TC; 88305-TC; 88313-TC; 88342; C9113; G0378; J2250; J2405; J2704; J3475; J3490; P9016-BL

== ENCOUNTER 2018-12-23 21:40 | Emergency (ER) | payer OTHER ==
[~2018-12-23 21:40] MED LIST changes: +ERGO500040 PO; -LEVO500T75 PO
[2018-12-23] MEDS ORDERED: IV NS 0.9% 1,000 ML BAG IV ONE (23:00)
== END 2018-12-24 00:48 | disposition home or self-care (01) ==
DX: N39.0 Urinary tract infection, site not specified (principal); I10 Essential (primary) hypertension; Z85.3 Personal history of malignant neoplasm of breast; Z90.11 Acquired absence of right breast and nipple
CPT/HCPCS: 36415; 71045; 80048; 80076; 81001; 83605; 84145; 84484; 85025; 85730; 87040 ×2; 87077; 87086; 87186; 93005; 99284; J7030

== ENCOUNTER 2021-03-14 11:03 | Emergency (ER) | payer OTHER ==
[~2021-03-14] VITALS: Ht 167.6 cm; Wt 87.1 kg
--- NOTE | 2021-03-14 11:15 | NUR ---
The patient is for weakness x 3 days. fever got worst since last night.on cifro for uti per daughter. Alert and oriented x3. Denies pain. In room air and denies SOB. Respiration regular and unlabored. Will continue to monitor the patient.
[2021-03-14] MEDS ORDERED: IV NS 0.9% 500 ML BAG IV ONE (12:00)
[2021-03-14] MEDS ORDERED: ACETAMINOPHEN 650 MG/20.3 ML UDC ONE (12:27)
[2021-03-14] MEDS ORDERED: CEFEPIME 1 GM in IV D5W 50 ML IV ONE (12:30)
[2021-03-14] MEDS ORDERED: VANCOMYCIN 1 GM in IV D5W 250 ML IV ONE (12:30)
[2021-03-14] MEDS ORDERED: ACETAMINOPHEN 650 MG/20.3 ML UDC PO ONE (12:30)
[2021-03-14] MEDS ORDERED: IV NS 0.9% 1,000 ML BAG IV ONE (12:30)
[2021-03-14 12:39] LABS: EOSINOPHILS % (AUTO) 0.4 % (0.0-6.0); NEUTROPHILS # (AUTO) 4.5 K/uL (1.8-8.9); WHITE BLOOD COUNT (AUTO) 4.8 K/uL (4.3-11.0)
[2021-03-14 12:42] LABS: BASOPHILS % (AUTO) 0.2 % (0.0-2.0); HEMATOCRIT 40 % (33-45); HEMOGLOBIN 13.2 g/dL (11.5-14.8); LYMPHOCYTES # (AUTO) 0.3 K/uL (0.8-4.8); LYMPHOCYTES % (AUTO) 5.8 % (20.0-44.0); MEAN CORPUSCULAR HGB CONC 33 g/dl (31.0-36.0); MEAN CORPUSCULAR VOLUME 97 fL (82-100); MONOCYTES % (AUTO) 0.6 % (2.0-12.0); PLATELET COUNT (AUTO) 156 K/uL (150-450); RED BLOOD CELL COUNT(AUTO) 4.16 MIL/uL (4.0-5.2)
[2021-03-14 12:43] LABS: CALCIUM, SERUM 8.6 mg/dL (8.5-10.1); CARBON DIOXIDE 22 mmol/L (21-32); CHLORIDE 99 mmol/L (98-107); CREATININE 1.5 mg/dL (0.6-1.3); GLUCOSE 132 mg/dL (74-106); POTASSIUM 3.6 mmol/L (3.5-5.1); SODIUM SERUM 137 mmol/L (136-145); UREA NITROGEN, BLOOD 15 mg/dL (7-18)
[2021-03-14 12:49] LABS: ALANINE AMINOTRANSFERASE 45 U/L (12-78); ALBUMIN 2.8 g/dL (3.4-5.0); ALKALINE PHOSPHATASE 114 U/L (46-116); ASPARTATE AMINOTRANSFERASE 50 U/L (15-37); BILIRUBIN,DIRECT 0.3 mg/dL (0.0-0.2); BILIRUBIN,TOTAL 0.8 mg/dL (0.2-1.0); LIPASE 65 U/L (73-393); TOTAL PROTEIN, SERUM 8.4 g/dL (6.4-8.2)
--- NOTE | 2021-03-14 12:51 | NUR ---
URINE COLLECTED AND SENT TO LAB
[2021-03-14] MEDS ORDERED: LEVO50TA8 PO (13:04)
[2021-03-14] MEDS ORDERED: CIPR500T5 PO (13:04)
[2021-03-14 13:12] LABS: BILIRUBIN,URINE SMALL (NEGATIVE); COLOR,URINE DARK YELLOW (YELLOW); LEUKOCYTE ESTERASE ,URINE Negative (NEGATIVE); NITRITE, URINE Negative (NEGATIVE); PROTEIN,URINE 100 mg/dl (NEGATIVE); UGLUCOSE Negative (NEGATIVE)
--- NOTE | 2021-03-14 13:14 | NUR ---
TAKEN TO CT
--- NOTE | 2021-03-14 13:17 | NUR ---
MOVE SHEET SUBMITTED AND CALLED FOR TELE BED.
[2021-03-14 13:23] LABS: BACTERIA,URINE Few /HPF (None Seen); RBC,URINE 0-3 /HPF (0-2); SQUAMOUS EPITHELIAL CELL,UR Moderate /HPF (None Seen); WBC,URINE 0-3 /HPF (0-3)
--- NOTE | 2021-03-14 13:33 | NUR ---
COVID SWAB DONE AND SENT TO LAB
--- NOTE | 2021-03-14 13:37 | NUR ---
CALLED DR. WEBER LEFT MSG.
--- NOTE | 2021-03-14 13:57 | NUR ---
DR. WEBER SPEAKING WITH DR. LITTLE.
--- NOTE | 2021-03-14 14:12 | NUR ---
REPORT GIVEN TO DEBRA HERNANDES FOR ROSSY
--- NOTE | 2021-03-14 14:30 | NUR ---
TECHNOLOGY INSTRUCTOR NOTES PT ARRIVED ON THE UNIT FROM ER VIA GURNEY. PT AMBULATED TO THE BED. VITAL SIGNS FOLLOWS TEMPERATURE 98.8 HR 82 RR 18 BP 102/64.
--- NOTE | 2021-03-14 17:36 | NUR ---
RN NOTES PT SEEN BY DR. WEBER AT THE BEDSIDE. PER DR. WEBER PT WAS NOT SUPPOSED TO BE ADMITTED AND WILL LIKELY BE TRANSFERRED TO ANOTHER FACILITY BY PT'S OWN CLERICAL AND ADMINISTRATIVE WORKERS THROUGH PRIVATE INSURANCE. [facility] CLERICAL AND ADMINISTRATIVE WORKERS CONSULTED AND NURSING E LEARNING COORDINATOR NOTIFIED.
--- NOTE | 2021-03-14 18:33 | NUR ---
RN NOTE LAB CALLED AND NOTIFIED OF CRITICAL VALUE LACTIC ACID REFLEX-2.1. PMD MADE AWARE.
--- NOTE | 2021-03-14 18:59 | NUR ---
FRONT END TECHNICIAN CLOSING NOTE PT IS RESTING COMFORTABLY IN BED IN HIGH FOWLERS POSITION. PT IS ON RA WITH NO S/SX OF RESPIRATORY DISTRESS. PT AWAITING TRANSFER TO [facility], TO BE ARRANGED MY [facility] AUTOMOBILE REPAIR SERVICE ESTIMATOR, CHICHO, . ORDERS IN FOR VANCOMYCIN 1GM AND MAXIPIME 1GM Q8H. REPORT GIVEN TO ONCOMING SHIFT FOR CONTINUITY OF CARE.
[2021-03-14] MEDS ORDERED: ACETAMINOPHEN 650 MG/20.3 ML UDC NG PRN (19:00)
--- NOTE | 2021-03-14 19:05 | NUR ---
RECEIVED PT ON BED AWAKE AA/O X3 WELSH SPEAKING CAN UNDERSTAND LITTLE POLISH ON ROOM AIR SPO2 98% NO SIGN ORE RESPIRATORY DISTRESS, TELE MONITOR READS SINUS RHYTHM 90'S, NO CHEST PAIN COMPLAINT HAVE LAC # 20 IV PATENT AND FLUSHED PT IS AMBULATORY AND CAN WALK TO BATHROOM, BED ON LOWEST POSITION AND LOCKED SIDE RAILS UP X2 CALL LIGHT WITHIN REACH, PT IS POSSIBLE FOR TRANSFER TO [facility], WILL CONT TO MONITOR
[2021-03-14 20:00] VITALS: BP 90/51
[2021-03-14] MEDS ORDERED: CEFEPIME 1 GM VIAL IM SCH (21:00)
[2021-03-14] MEDS ORDERED: CEFEPIME 1 GM in IV D5W 50 ML IV SCH (21:00)
[2021-03-14] MEDS ORDERED: IV NS 0.9% 500 ML IV ONE (22:30)
[2021-03-14] MEDS ORDERED: PIPERACILLIN /TAZOBACTAM 2.25 G VIAL IV ONE (23:22)
[2021-03-14] MEDS: ZOSYN IVPB 2.25 G in IV D5W 50ml IV SCH (23:25)
--- NOTE | 2021-03-14 23:56 | NUR ---
RECEIVED CALL FROM KALEB PT WILL GO TO [facility] AT ROOM 603 REPORT # [phone] ETA OF AMBULANCE IS 0700 VIA [facility]
[2021-03-15] VITALS: BP 139/100
[2021-03-15] MEDS ORDERED: PIPERACILLIN /TAZOBACTAM 3.375 G in IV D5W 50 ML IV SCH
[2021-03-15] MEDS ORDERED: ZOSYN IVPB 3.375 G in IV D5W 50ml IV SCH
[2021-03-15 04:00] VITALS: BP 112/57
[2021-03-15] MEDS ORDERED: PIPERACILLIN /TAZOBACTAM 2.25 G VIAL IV ONE (05:05)
[2021-03-15] MEDS: ZOSYN IVPB 2.25 G in IV D5W 50ml IV SCH (05:13)
--- NOTE | 2021-03-15 06:08 | NUR ---
REPORT GIVEN TO CLARENCE HERNANDES OF [employer] [facility] FOR ROSSY PT WILL GO TO ROOM 602
[2021-03-15 07:00] VITALS: BP 111/62
--- NOTE | 2021-03-15 07:38 | NUR ---
RN NOTES PT ALERT/ ORIENTED, UP TO THE BATHROOM , NO DISTRESS NOTED AT THIS TIME , REPORT GIVEN TO EMT , PT LEFT THE FLOOR AND TRANSFERRED TO [facility] VIA AMBULANCE .
[2021-03-15] MEDS ORDERED: ZOSYN IVPB 2.25 G in IV D5W 50ml IV SCH (12:00)
[2021-03-15] MEDS ORDERED: VANCOMYCIN 1 GM in IV D5W 250 ML IV SCH (12:00)
== END 2021-03-15 07:38 | disposition short-term general hospital (02) ==
LOC: ER 11:08 → TELE1 14:53 → UNDOADMIN 14:53 → UNDODISIN 03-15 07:35 → ER 03-15 07:38
DX: A41.9 Sepsis, unspecified organism (principal); I21.4 Non-ST elevation (NSTEMI) myocardial infarction; F41.9 Anxiety disorder, unspecified; Z85.3 Personal history of malignant neoplasm of breast; Z20.822 Contact with and (suspected) exposure to COVID-19; Z90.11 Acquired absence of right breast and nipple; I11.9 Hypertensive heart disease without heart failure; R10.32 Left lower quadrant pain; Z87.440 Personal history of urinary (tract) infections; Z87.19 Personal history of other diseases of the digestive system; Z79.899 Other long term (current) drug therapy
CPT/HCPCS: 36415; 71045; 74176; 80048; 80076; 81001; 83605 ×2; 83690; 84145; 84484 ×2; 85025; 87040 ×2; 87077; 87086; 87186; 87426; 93005; 96361; 96365; 96366; 96367; 96368; 99291; J0692 ×3; J2543 ×2; J3370; J7030; J7040 ×2; J7060 ×4; C9803; G0378

== ENCOUNTER 2022-04-05 12:18 | Inpatient (IN) | payer OTHER ==
[~2022-04-05] VITALS: Ht 160 cm; Wt 83.5 kg
[~2022-04-05 12:18] MED LIST changes: +CIPR500T5 PO; +LEVO50TA8 PO
[2022-04-05] MEDS ORDERED: IV NS 0.9% 1,000 ML BAG IV ONE (12:30)
[2022-04-05 12:50] LABS: BASOPHILS # (AUTO) 0.1 K/uL (0.0-0.2); BASOPHILS % (AUTO) 0.8 % (0.0-2.0); EOSINOPHILS % (AUTO) 0.6 % (0.0-6.0); HEMATOCRIT 24 % (33-45); LYMPHOCYTES # (AUTO) 2.6 K/uL (0.8-4.8); LYMPHOCYTES % (AUTO) 32.3 % (20.0-44.0); MEAN CORPUSCULAR HGB CONC 34 g/dl (31.0-36.0); MEAN CORPUSCULAR VOLUME 91 fL (82-100); MONOCYTES # (AUTO) 1.4 K/uL (0.1-1.30); MONOCYTES % (AUTO) 18.2 % (2.0-12.0); NEUTROPHILS # (AUTO) 3.8 K/uL (1.8-8.9); NEUTROPHILS % (AUTO) 48.1 % (43.0-81.0); RED BLOOD CELL COUNT(AUTO) 2.59 MIL/uL (4.0-5.2)
[2022-04-05 13:08] LABS: ALANINE AMINOTRANSFERASE 32 U/L (12-78); ALKALINE PHOSPHATASE 87 U/L (46-116); ASPARTATE AMINOTRANSFERASE 26 U/L (15-37); BILIRUBIN,DIRECT 0.1 mg/dL (0.0-0.2); BILIRUBIN,TOTAL 0.2 mg/dL (0.2-1.0); CALCIUM, SERUM 8.5 mg/dL (8.5-10.1); CARBON DIOXIDE 27 mmol/L (21-32); CHLORIDE 106 mmol/L (98-107); CREATININE 1.1 mg/dL (0.6-1.3); GLUCOSE 158 mg/dL (74-106); SODIUM SERUM 140 mmol/L (136-145); TOTAL PROTEIN, SERUM 6.8 g/dL (6.4-8.2); UREA NITROGEN, BLOOD 42 mg/dL (7-18)
[2022-04-05 13:28] LABS: PLATELET COUNT (AUTO) 37 K/uL (150-450)
--- NOTE | 2022-04-05 14:10 | NUR ---
MOVE SHEET SUBMITTED.
--- NOTE | 2022-04-05 14:50 | NUR ---
COVID SWAB COLLECTED AND SENT TO LAB
--- NOTE | 2022-04-05 16:17 | NUR ---
REGAL DOGG[facility] DAYCARE ACTIVITIES DIRECTOR WILL CALL BACK FOR TRANSFER INFO
--- NOTE | 2022-04-05 16:44 | NUR ---
OLIVIA GUZMAN [phone] OF [place], ADMIT INPATIENT TELE UNDER DR WEBER, AUTH# [id number].
[2022-04-05] MEDS ORDERED: ONDANSETRON HCL/PF 4 MG/2 ML VIAL IV PRN (17:30)
[2022-04-05] MEDS ORDERED: MORPHINE SULFATE INJ 2 MG/ML DISP.SYRIN IV PRN (17:30)
[2022-04-05] MEDS ORDERED: ALPRAZOLAM 0.5 MG TABLET PO PRN (17:30)
[2022-04-05] MEDS ORDERED: PANTOPRAZOLE 40 MG VIAL ONE (17:52)
[2022-04-05] MEDS: PANTOPRAZOLE 40 MG VIAL IV SCH (18:05)
[2022-04-05] MEDS: IV D5/ 0.9% NACL 1,000 ML IV SCH (18:05)
[2022-04-05 19:07] LABS: HEMOGLOBIN 6.7 g/dL (11.5-14.8)
--- NOTE | 2022-04-05 19:14 | NUR ---
yaima romero (dtr) for consent for blood transfusion as patient is unable to understand nigerian; verbal consent provided by dtr for blood transfusion.
--- NOTE | 2022-04-05 19:18 | NUR ---
consent form signed by pt and placed in the chart
--- NOTE | 2022-04-05 19:49 | NUR ---
RECEIVED REPORT FROM CECILIO GARRETT. PT FOR BT. CONSENT SIGNED ALREADY. BOX NAILER AT BEDSIDE TO REPEAT BLOOD WORKS. PATIENT IS AAOX3. SLOVAK SPEAKING. LOOKS PALE. WITH IV LINE ON RIGHT AC G20. ATTACHED TO MONITOR. VITALS CHECKED.
--- NOTE | 2022-04-05 20:12 | NUR ---
REPORT GIVEN TO CECILIO COLLINS
--- NOTE | 2022-04-05 20:22 | NUR ---
PT TRANSFERRING TO 3W 314-T VIA ACLS PROTOCOL. VSS. ALL BELONGINGS WITH PT.
--- NOTE | 2022-04-05 20:30 | NUR ---
RN ADMITTING NOTE PATIENT RECEIVED FROM OSCAR ELAINE RN. PATIENT IS A/O X 3, KOREAN SPEAKING, UNABLE TO SPEAK OR UNDERSTAND SAMMARINESE. SHANTA ALEGRIA ) DAUGHTER ON THE PHONE ABLE TO TRANSLATE. PATIENT APPEARS PALE. PATIENT IS ON RA, TOLERATING WELL, NO SOB NOTED. PATIENT HAS A RAC 20 G PATENT AND INTACT. PATIENT DOES NOT REPORT ANY N/V AT THIS TIME, NO PAIN WELL. PATIENT IS ABLE TO WALK WITH ASSISTANCE. PER DAUGHTER SHANTA ALEGRIA ) SHE HAD HER COVID VACCINES X 2 (MODERNA), FLU VACCINE 04/02/22. SHANTA WILL ALSO BRING PATIENT'S MEDICATION BOTTLES IN AM PER PHARMACY REQUEST THE HOSPITAL DOES NOT CARRY SOME OF HER HOME MEDICATIONS. TELE MONITOR READS SR 86 BPM. ORIENTED PATIENT TO ROOM, RN, AND MEDICAL RECORDS CODER/. BELONGINGS INVENTORIED. SAFETY MEASURES IN PLACE: BED LOCKED AND IN LOWEST POSITION, CALL LIGHT WITHIN REACH, SIDE RAILS UP. WILL MONITOR PATIENT CLOSELY.
[2022-04-05 21:00] VITALS: BP 134/78
--- NOTE | 2022-04-05 22:34 | NUR ---
RN NOTE PATIENT GESTURING THE SHE WAS GOING TO THROW UP WHEN SHE GOT UP, OFFERED ZOFRAN AND NODDED HEAD, PULLED MEDICATION, PATIENT STATES SHES FINE NOW AND SAYS "NO, NO" TO MEDICATION AND SAYS SHE'S OKAY. MEDICATION NOW IN THE WASTE BIN.
[2022-04-05 23:10] VITALS: BP 121/53
[2022-04-05 23:25] VITALS: BP 101/44
--- NOTE | 2022-04-05 23:25 | NUR ---
BLOOD TRANSFUSION INITIATED. BP 101/44, HR 86, TEMP 98.2, O2 SAT 98% ON RA. WILL MONITOR PATIENT FOR ANY BLOOD TRANSFUSION REACTION.
[2022-04-05 23:40] VITALS: BP 102/46
--- NOTE | 2022-04-05 23:40 | NUR ---
NO ADVERSE REACTION FROM PRBC 15 MIN AFTER IT WAS INITIATED. PATIENT REMAINS AFEBRILE, NO ALLERGIC REACTION, LUNG SOUNDS CLEAR BILATERALLY. PATIENT DOES NOT REPORT ANY SYMPTOMS. BP 102/46, HR 87. RESP 20, O2 SAT 98% ON RA, TEMP 98.3.
[2022-04-06] VITALS (18 sets, daily range): BP systolic 94–135; BP diastolic 23–70
[2022-04-06 00:05] LABS: HEMOGLOBIN 6.1 g/dL (11.5-14.8)
--- NOTE | 2022-04-06 00:06 | NUR ---
NOTIFIED BY WALESKA FROM LAB REGARDING PATIENT'S HGB LEVEL 6.1 AND HCT 19.
--- NOTE | 2022-04-06 02:12 | NUR ---
BLOOD TRANSFUSION COMPLETE. VITAL SIGNS STABLE. PATIENT STILL DOES NOT PRESENT OF ANY ADVERSE REACTION FROM THE PRBC.
[2022-04-06 02:37] LABS: BAND % (MANUAL) 1 % (0.0-5.0); BASOPHILS % (MANUAL) 0 % (0.0-2.0); EOSINOPHILS % (MANUAL) 1 % (0-4); LYMPHOCYTES % (MANUAL) 26 % (16-48); MONOCYTES % (MANUAL) 50 % (0-11.0); NEUTROPHILS % (MANUAL) 22 (42-76)
--- NOTE | 2022-04-06 03:18 | NUR ---
PLT TRANSFUSION STARTED, VITAL SIGNS STABLE AT THIS TIME. PATIENT DOES NOT COMPLAIN OF ANY PAIN, N/V, ITCHING. PATIENT AFEBRILE AT THIS TIME. WILL RECHECK AND REASSESS PATIENT IN 15 MINS.
--- NOTE | 2022-04-06 03:33 | NUR ---
STAYED AT BEDSIDE WITH PATIENT FOR THE PAST 15 MINS. VITAL SIGNS REMAIN STABLE. PATIENT AFEBRILE. NO ADVERSE REACTIONS FROM THE PLATELET UNIT.
--- NOTE | 2022-04-06 04:27 | NUR ---
PLATELET TRANSFUSION COMPLETED. LUNGS CLEAR TO AUSCULTATION, VSS. NO FEVER.
[2022-04-06] MEDS: IV D5/ 0.9% NACL 1,000 ML IV SCH (04:34)
--- NOTE | 2022-04-06 06:56 | NUR ---
RN CLOSING NOTE PATIENT IN BED, EYES CLOSED. EASILY AWAKENED. PATIENT ON RA, TOLERATING WELL, BREATHING EVEN AND UNLABORED. A/O X 3, ABLE TO MAKE NEEDS KNOWN WITH GESTURES AND SIMPLE SETSWANA. PATIENT HAS A RAC 20 G WITH D5 NS ONGOING AT 100 ML/HR. PATIENT DENIES ANY N/V/ OR ABDOMINAL PAIN. PATIENT DID NOT HAVE A BM DURING THE SHIFT. AMBULATED TO BSC WITH ASSIST. SAFETY MEASURES IN PLACE: BED LOCKED AND IN LOWEST POSITION, CALL LIGHT WITHIN REACH, SIDE RAILS UP. ALL NEEDS MET AND ATTENDED. ALL ORDERS CARRIED OUT. WILL ENDORSE TO DAY SHIFT NURSE FOR ROSSY.
[2022-04-06 07:19] LABS: BASOPHILS % (AUTO) 0.5 % (0.0-2.0); EOSINOPHILS % (AUTO) 0.3 % (0.0-6.0); LYMPHOCYTES # (AUTO) 2.6 K/uL (0.8-4.8); LYMPHOCYTES % (AUTO) 30.5 % (20.0-44.0); MEAN CORPUSCULAR HGB CONC 34 g/dl (31.0-36.0); MEAN CORPUSCULAR VOLUME 90 fL (82-100); MONOCYTES # (AUTO) 1.5 K/uL (0.1-1.30); NEUTROPHILS # (AUTO) 4.3 K/uL (1.8-8.9); NEUTROPHILS % (AUTO) 50.7 % (43.0-81.0); WHITE BLOOD COUNT (AUTO) 8.5 K/uL (4.3-11.0)
[2022-04-06 07:49] LABS: CALCIUM, SERUM 8.1 mg/dL (8.5-10.1); CREATININE 0.9 mg/dL (0.6-1.3); POTASSIUM 3.9 mmol/L (3.5-5.1)
[2022-04-06 07:53] LABS: HEMOGLOBIN 6.5 g/dL (11.5-14.8)
[2022-04-06 07:56] LABS: HEMATOCRIT 19 % (33-45); PLATELET COUNT (AUTO) 37 K/uL (150-450)
[2022-04-06] MEDS: LEVOTHYROXINE SODIUM 50 MCG TABLET PO SCH (08:28)
[2022-04-06] MEDS: PANTOPRAZOLE 40 MG VIAL IV SCH ×2 (08:29→17:44)
[2022-04-06 12:13] LABS: HEMOGLOBIN 5.9 g/dL (11.5-14.8)
--- NOTE | 2022-04-06 14:35 | NUR ---
RN NOTE 2 UNITS OF RBC ORDERED BY DR. WEBER. THE FIRST UNIT STARTED AT 1137 AND FINISHED AT 1430, BUT IN THE SYSTEM WE COULD NOT END IT. PATIENT TOLERATED WELL WITHOUT ANY ALLERGIC REACTION. TH 2ND UNIT STARTED AT 1450 AND GOING TO MONITOR THE PATIENT FOR ANY REACTION.
[2022-04-06 16:41] LABS: BAND % (MANUAL) 1 % (0.0-5.0); EOSINOPHILS % (MANUAL) 1 % (0-4); LYMPHOCYTES % (MANUAL) 43 % (16-48); MONOCYTES % (MANUAL) 10 % (0-11.0); NEUTROPHILS % (MANUAL) 45 (42-76)
--- NOTE | 2022-04-06 18:35 | NUR ---
RN NOTE 2 UNITS OF RBC GIVEN TO PATIENT FIRST AT 1137 THE SECOND UNIT AT 1450. PATIENT TOLERATED WELL WITHOUT ALLERGIC REACTION. PATIENT A/O X4 JORDANIAN SPEAKING I USED GOGGLE TRANSLATE FOR COMMUNICATION. PATIENT ON D5 RUNNING FLUSHING AND INTACT. ALL FALL AND SAFETY PRECAUTIONS IMPLEMENTED. WAITING FOR GI DRNubia TO VISIT HER DUE TO UPPER GI BLEEDING. PATIENT IS NPO. WILL ENDORSE THE PATIENT FOR THE FIELD SALES ENGINEER NURSE FOR ROSSY.
--- NOTE | 2022-04-06 19:25 | NUR ---
RN OPENING NOTE PATIENT IN BED, AWAKE. PATIENT IS ABLE TO MAKE NEEDS KNOWN. PRIMARILY BURKINAN SPEAKING. ON RA, TOLERATING WELL, NO SOB NOTED, BREATHING EVEN AND UNLABORED. PATIENT DOES NOT REPORT ANY PAIN, N/V. RAC 20 G PATENT AND INTACT WITH ONGOING D5 NS AT 100 ML/HR, INFUSING WELL. TELE MONITOR READS 86 BPM WITH PAC. PATIENT IS CURRENTLY NPO EXCEPT MEDS. SAFETY MEASURES IN PLACE: BED LOCKED AND IN LOWEST POSITION, CALL LIGHT WITHIN REACH, SIDE RAILS UP. BED ALARM ON. WILL MONITOR PATIENT CLOSELY.
[2022-04-06 20:52] LABS: HEMOGLOBIN 8.4 g/dL (11.5-14.8)
[2022-04-06] MEDS: TAMOXIFEN CITRATE 10 MG TABLET PO SCH (22:00)
[2022-04-06] MEDS: IV D5/ 0.9% NACL 1,000 ML IV PRN (22:03)
[2022-04-07] VITALS (18 sets, daily range): BP systolic 115–159; BP diastolic 5–66
[2022-04-07 00:01] LABS: HEMOGLOBIN 7.8 g/dL (11.5-14.8)
--- NOTE | 2022-04-07 00:12 | NUR ---
RN NOTE ORDERED PLATELETS PER STANDING ORDER: 1 UNIT PLT FOR LOW PLT, GI BLEED. CHARGE NURSE AWARE.
[2022-04-07] MEDS: ZOLPIDEM TARTRATE 5 MG TABLET PO PRN ×2 (01:23→23:55)
--- NOTE | 2022-04-07 01:23 | NUR ---
NOTED PATIENT UNABLE TO SLEEP, OFFERED PATIENT SLEEPING MEDICATION IN WHICH SHE AGREED TO TAKE. ADMINISTERED AMBIEN 5 MG TO HELP HER SLEEP. USED [employer] MSA Management TO COMMUNICATE WITH PATIENT.
--- NOTE | 2022-04-07 06:00 | NUR ---
CALLED LAB TO FOLLOW UP REGARDING PLATELET STATUS, PER HENNY HE WILL CALL INTERNATIONAL SPECIALIST TO CONFIRM PLATELET STATUS
[2022-04-07 06:43] LABS: BASOPHILS % (AUTO) 0.3 % (0.0-2.0); EOSINOPHILS % (AUTO) 0.5 % (0.0-6.0); LYMPHOCYTES % (AUTO) 26.8 % (20.0-44.0); MEAN CORPUSCULAR HGB CONC 35 g/dl (31.0-36.0); MEAN CORPUSCULAR VOLUME 88 fL (82-100); MONOCYTES # (AUTO) 1.4 K/uL (0.1-1.30); MONOCYTES % (AUTO) 18.3 % (2.0-12.0); NEUTROPHILS % (AUTO) 54.1 % (43.0-81.0); RED BLOOD CELL COUNT(AUTO) 2.22 MIL/uL (4.0-5.2); WHITE BLOOD COUNT (AUTO) 7.4 K/uL (4.3-11.0)
--- NOTE | 2022-04-07 06:57 | NUR ---
HENNY FROM LAB STATES THAT STAT PLATELET WILL TAKE 3 HRS THE EARLIEST SINCE PLATELET IS NOT STORED IN HOUSE. CHARGE NURSE AWARE. WILL ENDORSE TO AM.
[2022-04-07 07:00] LABS: CALCIUM, SERUM 7.2 mg/dL (8.5-10.1); CREATININE 0.8 mg/dL (0.6-1.3); POTASSIUM 3.6 mmol/L (3.5-5.1)
[2022-04-07 07:17] LABS: HEMATOCRIT 20 % (33-45); HEMOGLOBIN 6.8 g/dL (11.5-14.8); PLATELET COUNT (AUTO) 24 K/uL (150-450)
--- NOTE | 2022-04-07 07:30 | NUR ---
TANK WELDER OPENING NOTE PATIENT IN BED, AWAKE. PATIENT IS ABLE TO MAKE NEEDS KNOWN. PRIMARILY ARABIC SPEAKING. ON RA, TOLERATING WELL, NO SOB/DISTRESS NOTED, BREATHING EVEN AND NON-LABORED. PATIENT DOES NOT REPORT ANY PAIN. IV ACCESS: RAC 20 G PATENT AND INTACT WITH ONGOING D5 NS AT 100 ML/HR, INFUSING WELL. PT ON EXTERNAL METALSMITH. PATIENT IS CURRENTLY NPO EXCEPT MEDS. SAFETY PRECAUTIONS IMPLEMENTED: CALL LIGHT AND TABLE WITHIN REACH, HOB ELEVATED. SIDE RAILS UP X 2, BED IN LOWEST AND LOCKED POSITION. WILL CONTINUE MONITOR PATIENT'S CONDITION THROUGH THE SHIFT AND PROVIDE THE CARE.
--- NOTE | 2022-04-07 07:38 | NUR ---
RN CLOSING NOTE PATIENT IS A/O X 4, ABLE TO MAKE NEEDS KNOWN. PATIENT IS HUNGARIAN SPEAKING, USED GOOGLE TRANSLATE TO COMMUNICATE WITH THE PATIENT. PATIENT HAD BLACK STOOL X 2 DURING THE SHIFT. PATIENT DOES NOT COMPLAIN OF ANY PAIN. STILL PENDING PLATELET TRANSFUSION. SAFETY MEASURES IMPLEMENTED. ALL NEEDS MET AND ATTENDED. ALL ORDERS CARRIED OUT. ENDORSED TO DAY SHIFT NURSE FOR ROSSY.
[2022-04-07] MEDS: PANTOPRAZOLE 40 MG VIAL IV SCH ×2 (09:05→16:22)
[2022-04-07] MEDS: LEVOTHYROXINE SODIUM 50 MCG TABLET PO SCH (09:05)
--- NOTE | 2022-04-07 10:18 | NUR ---
RN NOTE STARTED PLT AT 1002. STAYED WITH PT FOR THE FIRST 15 MINUTES. VS TAKEN AFTER 15 MINUTES. VS STABLE. PT DOES NOT REPORT ANY CHANGES.
--- NOTE | 2022-04-07 11:00 | NUR ---
RN NOTE CT SCAN CALLED REGARDING ABD CT. NO ANSWER.
--- NOTE | 2022-04-07 11:15 | NUR ---
RN NOTE FUR REMODELER CAME TO LANDING GEAR MECHANIC PT WITH ONGOING PLT TRANSFUSION. RN NOTIFIED DIE MOUNTER PRIOR TO THEIR ARRIVAL THAT THE PT WAS UNAVAILABLE TO GO AT THIS TIME AND TO COME BACK AT 1100. UNABLE TO CONTACT CT AT THIS TIME, ATTEMPTED TO CALL X2.
[2022-04-07] MEDS: IV D5/ 0.9% NACL 1,000 ML IV PRN (13:47)
[2022-04-07 13:48] LABS: BAND % (MANUAL) 2 % (0.0-5.0); EOSINOPHILS % (MANUAL) 1 % (0-4); LYMPHOCYTES % (MANUAL) 52 % (16-48); METAMYELOCYTES % 2 % (0-0); MONOCYTES % (MANUAL) 24 % (0-11.0); MYELOCYTES % 2 % (0-0); NEUTROPHILS % (MANUAL) 17 (42-76)
--- NOTE | 2022-04-07 14:01 | NUR ---
RN NOTE CT SCAN CALLED REGARDING ABD CT. HIGH DENSITY FINISHING OPERATOR STATE THEY ARE CURRENTLY BUSY WITH ER PATIENTS, WILL NEED TO CALL THEM AGAIN AT A LATER TIME.
--- NOTE | 2022-04-07 14:10 | NUR ---
RN NOTE PER LISHA NUNEZ TO ADVANCED TO CLEAR LIQUID DIET.
--- NOTE | 2022-04-07 15:40 | NUR ---
RN NOTE 1 UNIT PRBC STARTED, VITAL SIGNS STABLE. NO S/S OF ADVERSE EFFECT.
[2022-04-07 16:31] LABS: BILIRUBIN,URINE NEGATIVE (NEGATIVE); COLOR,URINE YELLOW (YELLOW); LEUKOCYTE ESTERASE ,URINE NEGATIVE (NEGATIVE); NITRITE, URINE NEGATIVE (NEGATIVE); PH,URINE 5.5 (5.0-8.0); PROTEIN,URINE NEGATIVE (NEGATIVE); UGLUCOSE NEGATIVE (NEGATIVE); UROBILINOGEN,URINE 0.2 EU/dL (0.2)
--- NOTE | 2022-04-07 16:47 | NUR ---
RN NOTE PT WITH ONGOING PRBC TRANSFUSION. LAB MADE AWARE H/H DRAW WILL HAVE TO WAIT UNTIL AFTER COMPLETING TRANSFUSION
--- NOTE | 2022-04-07 18:25 | NUR ---
RN NOTE 1 UNIT PRBC STARTED. STAYED WITH PT FOR THE FIRST 15 MINUTES. VITAL SIGNS STABLE. NO S/S OF ADVERSE EFFECT.
--- NOTE | 2022-04-07 19:02 | NUR ---
SHOE SALESMAN CLOSING NOTE PATIENT IS A/O X 4, ABLE TO MAKE NEEDS KNOWN. PATIENT IS UZBEK SPEAKING, USED GOOGLE TRANSLATE TO COMMUNICATE WITH THE PATIENT. PATIENT RECEIVED 1 UNIT OF PLT, 2 PRBC, SECOND PACK OF RBC IS RUNNING. PATIENT DOES NOT COMPLAIN OF ANY PAIN. PT ON RA, BREATHING EVEN AND NON LABORED. IV ACCESS: LEFT FA 20G, INTACT PATENT AND FLUSHING WELL. PATIENT WITH EXTERNAL RAMP FLIGHT ATTENDANT READING SR @90S. SAFETY MEASURES IMPLEMENTED. ALL NEEDS MET AND ATTENDED. ALL ORDERS CARRIED OUT. WILL ENDORSED TO CENTRAL OFFICE FRAME WIRER NURSE FOR ROSSY.
--- NOTE | 2022-04-07 19:42 | NUR ---
RN OPENING NOTES RECEIVED PT IN BED, AWAKE WATCHING TV. AOx4, ABLE TO MAKE NEEDS KNOWN. ON RA AND TOLERATING WELL. NO SOB NOTED. NO S/SX OF RESPIRATORY DISTRESS NOTED. TELE MONITOR DETECTS SINUS RHYTHM. IV ACCESS IN LFA #20G RUNNING BLOOD @ 120 ML/HR AND TOLERATING WELL. SAFETY PRECAUTIONS IN PLACE: BED IN LOWEST, LOCKED POSITION, SIDERAILS UPx2, AND BRAKES ON. TABLE AND CALL LIGHT WITHIN REACH. ALL NEEDS MET AT THIS TIME.
--- NOTE | 2022-04-07 19:45 | NUR ---
RN NOTES SPOKE TO LAB PERSONNEL AND INFORMED THAT PT STILL HAS BLOOD RUNNING AND WILL RESCHEDULE H&H 2 HOURS AFTER BLOOD TRANSFUSION IS OVER SO BLOOD RESULTS ARE ACCURATE.
--- NOTE | 2022-04-07 21:12 | NUR ---
RN NOTES SPOKE TO NUCLEAR REACTOR OPERATOR WHO SAID THEY ARE SHORT STAFFED AND CANNOT DO CT. WILL CALL AGAIN AT A LATER TIME.
[2022-04-07] MEDS: TAMOXIFEN CITRATE 10 MG TABLET PO SCH (21:46)
--- NOTE | 2022-04-07 23:46 | NUR ---
RN NOTES SPOKE TO REFINERY OPERATOR VAPOR RECOVERY UNIT, YASHIRA, AND ASKED HER TO TAKE CBC, IN ADDITION, TO HEMOGLOBIN AND HEMATOCRIT. SINCE PATIENT ALSO GOT PLATELET TRANSFUSION.
[2022-04-07 23:55] LABS: BASOPHILS # (AUTO) 0.1 K/uL (0.0-0.2); BASOPHILS % (AUTO) 0.8 % (0.0-2.0); EOSINOPHILS % (AUTO) 0.6 % (0.0-6.0); HEMATOCRIT 23 % (33-45); LYMPHOCYTES # (AUTO) 2.2 K/uL (0.8-4.8); LYMPHOCYTES % (AUTO) 28.9 % (20.0-44.0); MEAN CORPUSCULAR HGB CONC 35 g/dl (31.0-36.0); MEAN CORPUSCULAR VOLUME 86 fL (82-100); MONOCYTES # (AUTO) 1.3 K/uL (0.1-1.30); MONOCYTES % (AUTO) 17.1 % (2.0-12.0); NEUTROPHILS % (AUTO) 52.6 % (43.0-81.0); RED BLOOD CELL COUNT(AUTO) 2.67 MIL/uL (4.0-5.2); WHITE BLOOD COUNT (AUTO) 7.6 K/uL (4.3-11.0)
[2022-04-08] VITALS (9 sets, daily range): BP systolic 110–141; BP diastolic 55–62
[2022-04-08 00:09] LABS: PLATELET COUNT (AUTO) 31 K/uL (150-450)
--- NOTE | 2022-04-08 00:12 | NUR ---
CECILIO NOTES RECEIVED CRITICAL LAB FOR PLATELETS OF 31. DR. WEBER MADE AWARE. Addendum: 04/08/22 at 0703 by ROLANDO CROWLEY RN ORDERED 1 UNIT OF PLATELETS
[2022-04-08 02:23] LABS: BAND % (MANUAL) 2 % (0.0-5.0); BASOPHILS % (MANUAL) 0 % (0.0-2.0); EOSINOPHILS % (MANUAL) 0 % (0-4); LYMPHOCYTES % (MANUAL) 50 % (16-48); MONOCYTES % (MANUAL) 23 % (0-11.0); NEUTROPHILS % (MANUAL) 25 (42-76)
[2022-04-08 06:59] LABS: BASOPHILS % (AUTO) 0.3 % (0.0-2.0); EOSINOPHILS % (AUTO) 0.7 % (0.0-6.0); HEMATOCRIT 23 % (33-45); HEMOGLOBIN 7.8 g/dL (11.5-14.8); LYMPHOCYTES % (AUTO) 27.9 % (20.0-44.0); MEAN CORPUSCULAR HGB CONC 34 g/dl (31.0-36.0); MEAN CORPUSCULAR VOLUME 87 fL (82-100); MONOCYTES # (AUTO) 1.3 K/uL (0.1-1.30); MONOCYTES % (AUTO) 18.2 % (2.0-12.0); NEUTROPHILS # (AUTO) 3.8 K/uL (1.8-8.9); NEUTROPHILS % (AUTO) 52.9 % (43.0-81.0); RED BLOOD CELL COUNT(AUTO) 2.63 MIL/uL (4.0-5.2); WHITE BLOOD COUNT (AUTO) 7.1 K/uL (4.3-11.0)
[2022-04-08 07:01] LABS: CALCIUM, SERUM 7.8 mg/dL (8.5-10.1); CREATININE 0.9 mg/dL (0.6-1.3); POTASSIUM 3.4 mmol/L (3.5-5.1)
--- NOTE | 2022-04-08 07:01 | NUR ---
RN CLOSING NOTES PT SITTING IN BED, AWAKE. AOx4, ABLE TO MAKE NEEDS KNOWN. ON RA AND TOLERATING WELL. NO SOB NOTED. NO S/SX OF RESPIRATORY DISTRESS NOTED. TELE MONITOR DETECTS SINUS RHYTHM. IV ACCESS IN LFA #20G. REFUSED IV FLUIDS. IV IS INTACT, PATENT, AND FLUSHING WELL. ALL ORDERS CARRIED OUT. ALL NEEDS MET. PT KEPT CLEAN AND DRY. SAFETY PRECAUTIONS IN PLACE: BED IN LOWEST, LOCKED POSITION, SIDERAILS UPx2, AND BRAKES ON. TABLE AND CALL LIGHT WITHIN REACH. WILL ENDORSE TO INCOMING SHIFT FOR ROSSY.
--- NOTE | 2022-04-08 07:35 | NUR ---
CIRCLE EDGER OPENING NOTE RECEIVED PATIENT IN BED, AWAKE, EATING BREAKFAST. A/OX4. PATIENT IS ABLE TO MAKE NEEDS KNOWN. PRIMARILY FRENCH SPEAKING. ON RA, TOLERATING WELL, NO SOB/DISTRESS NOTED, BREATHING EVEN AND NON-LABORED. PATIENT DOES NOT REPORT ANY PAIN. IV ACCESS: RAC 20G PATENT AND INTACT. PT ON EXTERNAL WETLANDS TECHNICIAN. SAFETY PRECAUTIONS IN PLACE: CALL LIGHT AND TABLE WITHIN REACH, HOB ELEVATED. SIDE RAILS UP X 2, BED IN LOWEST AND LOCKED POSITION. WILL CONTINUE MONITOR PATIENT'S CONDITION THROUGH THE SHIFT AND PROVIDE THE CARE.
[2022-04-08 07:38] LABS: PLATELET COUNT (AUTO) 27 K/uL (150-450)
--- NOTE | 2022-04-08 07:45 | NUR ---
RN NOTE RECEIVED CRITICAL LAB FROM [facility] FOR PLATELETS OF 27. DR. WEBER MADE AWARE. ORDERED 1 UNITE OF PLATELET AND 1 UNIT OF PRBC.
[2022-04-08] MEDS ORDERED: POTASSIUM CHLORIDE 20 MEQ TAB.PRT.SR PO ONE (08:00)
[2022-04-08 08:45] LABS: BAND % (MANUAL) 8 % (0.0-5.0); LYMPHOCYTES % (MANUAL) 32 % (16-48); METAMYELOCYTES % 2 % (0-0); MONOCYTES % (MANUAL) 9 % (0-11.0); MYELOCYTES % 2 % (0-0); NEUTROPHILS % (MANUAL) 33 (42-76); REACTIVE LYMPHOCYTES 14 % (0-0)
[2022-04-08] MEDS: LEVOTHYROXINE SODIUM 50 MCG TABLET PO SCH (08:56)
[2022-04-08] MEDS: PANTOPRAZOLE 40 MG VIAL IV SCH ×2 (08:56→16:24)
--- NOTE | 2022-04-08 11:48 | NUR ---
RN NOTE STARTED PLT AT 1128. STAYED WITH PT FOR THE FIRST 15 MINUTES. VS TAKEN BEFORE AND AFTER 15 MINUTES. VS STABLE. PT DOES NOT REPORT ANY CHANGES.
--- NOTE | 2022-04-08 12:30 | NUR ---
RN NOTE FINISHED PLT AT 1228. VS TAKEN AND STABLE. PT DOES NOT REPORT ANY CHANGES.
[2022-04-08] MEDS ORDERED: SOD FERRIC GLUC 125 MG in IV NS 0.9% 100 ML IV SCH (14:00)
[2022-04-08] MEDS: IRON SUCROSE COMPLEX 200 MG in IV NS 0.9% 100 ML IV SCH (14:45)
--- NOTE | 2022-04-08 18:40 | NUR ---
DETAIL MANAGER CLOSING NOTE PATIENT IS A/O X 4, ABLE TO MAKE NEEDS KNOWN. PATIENT IS NAMIBIAN SPEAKING, USED GOOGLE TRANSLATE TO COMMUNICATE WITH THE PATIENT. PATIENT RECEIVED 1 UNIT OF PLT. PATIENT DOES NOT COMPLAIN OF ANY PAIN. PT ON RA, BREATHING EVEN AND NON LABORED. IV ACCESS: LEFT FA 20G, RUNNING D5NS @100 ML/HR. PATIENT WITH EXTERNAL BLINDSTITCH HEMMER READING SR @88. ALL ORDERS CARRIED OUT. 1 UNIT PLT GIVEN. PRBC WAS NOT READY TO GIVE. ALL NEEDS MET. PT KEPT CLEAN AND DRY. SAFETY MEASURES IMPLEMENTED. ALL NEEDS MET AND ATTENDED. ALL ORDERS CARRIED OUT. WILL ENDORSED TO SENIOR AUTOMATION ENGINEER NURSE FOR ROSSY.
--- NOTE | 2022-04-08 19:30 | NUR ---
noc rn note received patient in bed. alert and oriented but kinyarwanda speaking. no c/c of apparent distress on room air. no c/o pain at this time. reading sr in the tele monitor with 84 bpm. L. FA #20g running d5 ns @100mls/hr at this time. call light within reach. safety in place. patient is for blood transfusion. will continue with plan of care for patient.
[2022-04-08 20:06] LABS: IRON, SERUM 151 ug/dl (50-175); TOTAL IRON BINDING CAPACITY 293 ug/dl (250-450)
[2022-04-08 20:41] LABS: FERRITIN 279 ng/mL (8-388)
[2022-04-08] MEDS: TAMOXIFEN CITRATE 10 MG TABLET PO SCH (22:11)
[2022-04-09] VITALS (9 sets, daily range): BP systolic 110–159; BP diastolic 56–74
--- NOTE | 2022-04-09 01:20 | NUR ---
noc rn note- transfusion blood transfusion started at this time. starting rate 60mls/hr. v/s as follows: 113/56, hr-88, rr-18, t-98.8, saturation 97% on room air. will monitor for 15 min.
--- NOTE | 2022-04-09 01:35 | NUR ---
noc rn note 15 minutes through transfusion patient not exhibiting any reaction. denies any sob, itchiness, flushing etc. v/s as follows: 159/74, hr 96, t-98.3, rr- 18, 95% saturation. bp elevated because patient got up to use the commode as well. will cont. to monitor.
--- NOTE | 2022-04-09 04:10 | NUR ---
noc rn note blood transfusion ended at this time. v/s stable. no reactions noted.
[2022-04-09 04:57] LABS: D-DIMER 35.2 mg/L(FEU (0.17-0.50)
--- NOTE | 2022-04-09 07:30 | NUR ---
noc rn closing needs attended. report given to CECILIO Horta for continuity of patient care.
--- NOTE | 2022-04-09 07:40 | NUR ---
MAINS AND SERVICE SUPERVISOR OPENING NOTE RECEIVED PATIENT IN BED, AWAKE. A/OX4. PATIENT IS ABLE TO MAKE NEEDS KNOWN. PRIMARILY OCCITAN SPEAKING. ON RA, TOLERATING WELL, NO SOB/DISTRESS NOTED, BREATHING EVEN AND NON-LABORED. PATIENT DOES NOT REPORT ANY PAIN. IV ACCESS: RAC 20G RUNNING D5NS @100 ML/HR. 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 SAFETY PRECAUTIONS IN PLACE: CALL LIGHT AND TABLE WITHIN REACH, HOB ELEVATED. SIDE RAILS UP X 2, BED IN LOWEST AND LOCKED POSITION. WILL CONTINUE MONITOR PATIENT'S CONDITION THROUGH THE SHIFT AND PROVIDE THE CARE.
[2022-04-09 07:43] LABS: BASOPHILS % (AUTO) 0.2 % (0.0-2.0); EOSINOPHILS % (AUTO) 0.7 % (0.0-6.0); HEMATOCRIT 28 % (33-45); HEMOGLOBIN 9.6 g/dL (11.5-14.8); LYMPHOCYTES # (AUTO) 2.6 K/uL (0.8-4.8); LYMPHOCYTES % (AUTO) 29.6 % (20.0-44.0); MEAN CORPUSCULAR HGB CONC 34 g/dl (31.0-36.0); MEAN CORPUSCULAR VOLUME 86 fL (82-100); MONOCYTES % (AUTO) 11.6 % (2.0-12.0); NEUTROPHILS % (AUTO) 57.9 % (43.0-81.0); RED BLOOD CELL COUNT(AUTO) 3.23 MIL/uL (4.0-5.2); WHITE BLOOD COUNT (AUTO) 8.7 K/uL (4.3-11.0)
[2022-04-09 07:51] LABS: CALCIUM, SERUM 7.9 mg/dL (8.5-10.1); CARBON DIOXIDE 26 mmol/L (21-32); CHLORIDE 110 mmol/L (98-107); CREATININE 0.8 mg/dL (0.6-1.3); GLUCOSE 139 mg/dL (74-106); MAGNESIUM 1.9 mg/dL (1.8-2.4); POTASSIUM 3.5 mmol/L (3.5-5.1); SODIUM SERUM 143 mmol/L (136-145); UREA NITROGEN, BLOOD 12 mg/dL (7-18)
[2022-04-09 08:06] LABS: PLATELET COUNT (AUTO) 27 K/uL (150-450)
--- NOTE | 2022-04-09 08:10 | NUR ---
RN NOTE RECEIVED CRITICAL LAB FROM AUGUST FOR PLATELET OF [address] @[id number] WEBER NOTIFIED. NO NEW ORDER.
[2022-04-09] MEDS: LEVOTHYROXINE SODIUM 50 MCG TABLET PO SCH (08:20)
[2022-04-09] MEDS: PANTOPRAZOLE 40 MG VIAL IV SCH (08:20)
[2022-04-09] MEDS: IV D5/ 0.9% NACL 1,000 ML IV PRN (10:36)
[2022-04-09] MEDS ORDERED: diphenhydrAMINE HCL 50 MG/ML VIAL IV ONE ×2 (14:30→23:30)
[2022-04-09] MEDS ORDERED: ACETAMINOPHEN 325 MG TABLET PO ONE ×2 (14:30→23:30)
[2022-04-09 15:03] LABS: BAND % (MANUAL) 1 % (0.0-5.0); LYMPHOCYTES % (MANUAL) 38 % (16-48); METAMYELOCYTES % 1 % (0-0); MONOCYTES % (MANUAL) 12 % (0-11.0); MYELOCYTES % 1 % (0-0); NEUTROPHILS % (MANUAL) 35 (42-76); REACTIVE LYMPHOCYTES 12 % (0-0)
--- NOTE | 2022-04-09 15:30 | NUR ---
RN NOTE- RECEIVED CRITICAL LAB FROM [facility] FOR PLATELET OF 14. DR WEBER AND BERNA HOFFMANN ARE NOTIFIED. BERNA HOFFMANN ORDERED 1 UNIT OF PLATELET.
[2022-04-09 15:58] LABS: D-DIMER 35.2 mg/L(FEU (0.17-0.50)
--- NOTE | 2022-04-09 16:05 | NUR ---
RN NOTE- RECEIVED CRITICAL LAB FROM [facility] FOR FIBRINOGEN OF 90. BERNA HOFFMANN NOTIFIED. ORDERED 10 UNIT OF CRYOPRECIPITATE.
[2022-04-09] MEDS: PANTOPRAZOLE 40 MG/PACK PACK PO SCH (16:34)
--- NOTE | 2022-04-09 19:00 | NUR ---
RUBY ON RAILS ENGINEER CLOSING NOTE PATIENT IS A/O X 4, ABLE TO MAKE NEEDS KNOWN. PATIENT IS KAZAKH SPEAKING, USED GOOGLE TRANSLATE TO COMMUNICATE WITH THE PATIENT. PATIENT DOES NOT COMPLAIN OF ANY PAIN AT THE MOMENT. PT ON RA, BREATHING EVEN AND NON LABORED. IV ACCESS REINSERTED: RIGHT WRIST 20G, RUNNING D5NS @75 ML/HR. PATIENT WITH EXTERNAL DIRECTOR OF SUSTAINABLE DESIGN READING SR @80S. ALL ORDERS CARRIED OUT. 1 UNIT PLT AND 10 UNIT OF CRYOPRECIPITATE WAS NOT READY TO GIVE. ALL NEEDS MET. PT KEPT CLEAN AND DRY. SAFETY MEASURES IMPLEMENTED. ALL NEEDS MET AND ATTENDED. ALL ORDERS CARRIED OUT. WILL ENDORSED TO ROUTER SETTER NURSE FOR ROSSY.
--- NOTE | 2022-04-09 19:30 | NUR ---
noc rn opening note received patient sitting in bed. alert and oriented but macanese speaking only. no s/s of apparent distress on room air. no c/o pain at this time. reading sr in the tele monitor with 82 bpm. rt. wrsit #20 g running d5 ns @100mls/hr at this time. call light within reach. safety in place. patient is for plt and cryoprecipitate transfusion. will continue with plan of care for patient.
--- NOTE | 2022-04-09 22:24 | NUR ---
noc rn note Started transfusing Plt at this time via gravity. v/s as follows: 110/66, t-98.3, hr-86, rr-18 saturation 97% on room air. will monitor and re-assess v/s 15 min.
--- NOTE | 2022-04-09 22:46 | NUR ---
noc rn note 15 min through transfusion no reaction note v/s as follows: 118/69, hr 89, t-98.1, rr-18, 97% on room air. will continue to monitor.
--- NOTE | 2022-04-09 22:54 | NUR ---
noc rn note plt ended at this time. v/s stable. will continue to monitor.
[2022-04-09] MEDS: TAMOXIFEN CITRATE 10 MG TABLET PO SCH (23:09)
[2022-04-10 00:53] VITALS: BP 127/68
--- NOTE | 2022-04-10 00:55 | NUR ---
noc rn note Cryoprecipitate started transfusing at this time. v/s as follows: 127/68, hr-80, t-98.6, rr-18, saturation 97% on room air. will monitor.
[2022-04-10 01:10] VITALS: BP 103/55
--- NOTE | 2022-04-10 01:12 | NUR ---
noc rn note ended transfusion at this time. patient in stable condition, sleeping. v/s as follows: 103/55, hr-73, rr-18, saturation 94% on room air.
[2022-04-10 04:00] VITALS: BP 118/69
[2022-04-10 07:07] LABS: IMMUNOGLOBULIN A, SERUM 402 mg/dL (64-422); IMMUNOGLOBULIN G, SERUM 776 mg/dL (586-1602); IMMUNOGLOBULIN M, SERUM 88 mg/dL (26-217)
[2022-04-10 07:22] LABS: ALANINE AMINOTRANSFERASE 36 U/L (12-78); ALBUMIN 2.7 g/dL (3.4-5.0); ALKALINE PHOSPHATASE 72 U/L (46-116); ASPARTATE AMINOTRANSFERASE 40 U/L (15-37); BILIRUBIN,DIRECT 0.2 mg/dL (0.0-0.2); BILIRUBIN,TOTAL 0.5 mg/dL (0.2-1.0); CALCIUM, SERUM 7.7 mg/dL (8.5-10.1); CARBON DIOXIDE 24 mmol/L (21-32); CHLORIDE 108 mmol/L (98-107); CREATININE 0.9 mg/dL (0.6-1.3); GLUCOSE 132 mg/dL (74-106); POTASSIUM 3.2 mmol/L (3.5-5.1); SODIUM SERUM 140 mmol/L (136-145); TOTAL PROTEIN, SERUM 5.8 g/dL (6.4-8.2); UREA NITROGEN, BLOOD 10 mg/dL (7-18)
--- NOTE | 2022-04-10 07:35 | NUR ---
noc rn closing needs attended. report given to CECILIO Canela for continuity of patient care.
[2022-04-10 08:00] VITALS: BP 144/79
[2022-04-10 08:07] LABS: CANCER AG, 15-3 4.3 U/mL (0.0-25.0)
[2022-04-10 08:54] LABS: BASOPHILS % (AUTO) 0.2 % (0.0-2.0); EOSINOPHILS % (AUTO) 0.5 % (0.0-6.0); HEMATOCRIT 26 % (33-45); LYMPHOCYTES # (AUTO) 1.8 K/uL (0.8-4.8); LYMPHOCYTES % (AUTO) 25.1 % (20.0-44.0); MEAN CORPUSCULAR HGB CONC 34 g/dl (31.0-36.0); MEAN CORPUSCULAR VOLUME 86 fL (82-100); MONOCYTES % (AUTO) 14.1 % (2.0-12.0); NEUTROPHILS # (AUTO) 4.3 K/uL (1.8-8.9); NEUTROPHILS % (AUTO) 60.1 % (43.0-81.0); RED BLOOD CELL COUNT(AUTO) 3.06 MIL/uL (4.0-5.2); WHITE BLOOD COUNT (AUTO) 7.1 K/uL (4.3-11.0)
[2022-04-10] MEDS ORDERED: POTASSIUM CHLORIDE 20 MEQ TAB.PRT.SR PO ONE (09:00)
[2022-04-10 09:07] LABS: PLATELET COUNT (AUTO) 39 K/uL (150-450)
[2022-04-10] MEDS: LEVOTHYROXINE SODIUM 50 MCG TABLET PO SCH (09:14)
[2022-04-10] MEDS: PANTOPRAZOLE 40 MG/PACK PACK PO SCH ×2 (09:14→17:28)
--- NOTE | 2022-04-10 09:45 | NUR ---
RN OPENING NOTE PATIENT AWAKE IN BED RESTING AT THE MOMENT A/O X 4. NO S/S OF PAIN NOTED AT THIS TIME. ON ROOM AIR, NO DISTRESS OR SHORTNESS OF BREATH NOTED. IV ACCESS LFA #20G, INTACT, PATENT AND FLUSHING WELL. PATIENT HAVE A EXTERNAL LOOP TACKER WITH CURRENT READING OF SR AND HR OF 93, NO CARDIAC DISTRESS NOTED. FALL AND SAFETY MEASURES IN PLACE, BED ALARM ON, BED IN LOW AND LOCK POSITION, CALL LIGHT AND TABLE WITHIN EASY REACH, SIDE RAILS UP X2. WILL CONTINUE TO MONITOR.
[2022-04-10 10:07] LABS: *ANA ANTI-CENTROMERE B AB <0.2 AI (0.0-0.9); *ANA ANTI-DNA(DS) AB, QN <1 IU/mL (0-9); *ANA ANTI-JO-1 <0.2 AI (0.0-0.9); *ANA ANTICHROMATIN ANTIBODY <0.2 AI (0.0-0.9); *ANA RNP ANTIBODIES <0.2 AI (0.0-0.9); *ANA SJOGREN'S ANTI-SS-A <0.2 AI (0.0-0.9); *ANA SJOGREN'S ANTI-SS-B <0.2 AI (0.0-0.9); *ANAANTI-SCLERODERMA-70 AB <0.2 AI (0.0-0.9); *ANASMITH AB <0.2 AI (0.0-0.9)
[2022-04-10 10:19] LABS: D-DIMER 35.2 mg/L(FEU (0.17-0.50)
[2022-04-10 13:07] LABS: *SPE A/G RATIO 0.9 (0.7-1.7); *SPE ALPHA-1-GLOBULIN 0.3 g/dL (0.0-0.4); *SPE ALPHA-2-GLOBULIN 0.7 g/dL (0.4-1.0); *SPE BETA GLOBULIN 1.1 g/dL (0.7-1.3); *SPE M-SPIKE Not Observed g/dL (Not Observed)
[2022-04-10] MEDS: IV D5/ 0.9% NACL 1,000 ML IV PRN (13:10)
[2022-04-10] MEDS: IRON SUCROSE COMPLEX 200 MG in IV NS 0.9% 100 ML IV SCH (14:01)
[2022-04-10 17:16] LABS: BAND % (MANUAL) 4 % (0.0-5.0); LYMPHOCYTES % (MANUAL) 42 % (16-48); MONOCYTES % (MANUAL) 11 % (0-11.0); NEUTROPHILS % (MANUAL) 42 (42-76); REACTIVE LYMPHOCYTES 1 % (0-0)
--- NOTE | 2022-04-10 19:23 | NUR ---
RN CLOSING NOTE PATIENT AWAKE IN BED RESTING AT THE MOMENT A/O X 4. NO S/S OF PAIN NOTED AT THIS TIME. ON ROOM AIR, NO DISTRESS OR SHORTNESS OF BREATH NOTED. IV ACCESS LFA #20G, INTACT, PATENT AND FLUSHING WELL. PATIENT HAVE A EXTERNAL WHARF TENDER HEAD WITH CURRENT READING OF SR AND HR OF 95, NO CARDIAC DISTRESS NOTED. SCHEDULE MEDICATIONS ADMINISTERED. FALL AND SAFETY MEASURES IN PLACE, BED ALARM ON, BED IN LOW AND LOCK POSITION, CALL LIGHT AND TABLE WITHIN EASY REACH, SIDE RAILS UP X2. WILL ENDORSES TO AIRPORT OPERATIONS CREW MEMBER.
--- NOTE | 2022-04-10 19:30 | NUR ---
RN OPENING NOTE PATIENT IN BED, EYES CLOSED, EASILY ROUSED. PATIENT IS ABLE TO MAKE NEEDS KNOWN. A/O X 4, VIETNAMESE SPEAKING. ABLE TO COMMUNICATE BASIC NEEDS. PER MIGUEL ÁNGEL RN, DR. WEBER MADE AWARE OF PLT LEVEL 39, NO TRANSFUSION ORDER AND ADDED FERRLICIT IV. R WRIST IV ACCESS PATENT AND INTACT WITH D5 NS ONGOING AT 75 ML/HR. PATIENT NOT IN ANY APPARENT DISTRESS. SAFETY MEASURES IN PLACE: BED LOCKED AND IN LOWEST POSITION, CALL LIGHT WITHIN REACH, SIDE RAILS UP. WILL MONITOR PATIENT CLOSELY.
[2022-04-10 20:00] VITALS: BP 117/64
[2022-04-10] MEDS: TAMOXIFEN CITRATE 10 MG TABLET PO SCH (21:14)
[2022-04-10] MEDS ORDERED: ACETAMINOPHEN 325 MG TABLET PO PRN (21:30)
--- NOTE | 2022-04-10 21:56 | NUR ---
PATIENT COMPLAINING OF A MILD HEADACHE AND REQUESTING TYLENOL. INFORMED DR. WEBER RE THE SITUATION AND ORDERED ACETAMINOPHEN 650 MG Q6HR PO. TYLENOL GIVEN TO PATIENT FOR MILD HEADACHE.
[2022-04-11] VITALS: BP 126/61
[2022-04-11 04:00] VITALS: BP 120/68
[2022-04-11] MEDS: IV D5/ 0.9% NACL 1,000 ML IV PRN (05:06)
[2022-04-11 06:50] LABS: BASOPHILS % (AUTO) 0.1 % (0.0-2.0); EOSINOPHILS % (AUTO) 0.4 % (0.0-6.0); HEMATOCRIT 28 % (33-45); HEMOGLOBIN 9.4 g/dL (11.5-14.8); LYMPHOCYTES # (AUTO) 2.1 K/uL (0.8-4.8); MEAN CORPUSCULAR HGB CONC 34 g/dl (31.0-36.0); MEAN CORPUSCULAR VOLUME 87 fL (82-100); MONOCYTES # (AUTO) 0.1 K/uL (0.1-1.30); MONOCYTES % (AUTO) 0.8 % (2.0-12.0); NEUTROPHILS # (AUTO) 5.7 K/uL (1.8-8.9); NEUTROPHILS % (AUTO) 71.7 % (43.0-81.0); RED BLOOD CELL COUNT(AUTO) 3.23 MIL/uL (4.0-5.2); WHITE BLOOD COUNT (AUTO) 7.9 K/uL (4.3-11.0)
[2022-04-11 07:14] LABS: CALCIUM, SERUM 8.4 mg/dL (8.5-10.1); CARBON DIOXIDE 27 mmol/L (21-32); CHLORIDE 109 mmol/L (98-107); CREATININE 0.9 mg/dL (0.6-1.3); GLUCOSE 137 mg/dL (74-106); POTASSIUM 3.7 mmol/L (3.5-5.1); SODIUM SERUM 145 mmol/L (136-145); UREA NITROGEN, BLOOD 11 mg/dL (7-18)
--- NOTE | 2022-04-11 07:32 | NUR ---
RN CLOSING NOTE PATIENT SITTING UP ON THE BED WATCHING TV. PATIENT ON RA, TOLERATING WELL. NO SOB NOTED. PATIENT NOT IN ANY APPARENT DISTRESS. PATIENT DOES NOT REPORT ANY PAIN AT THIS TIME. R WRIST IV ACCESS WITH ONGOING D5 NS AT 75 ML/HR. SAFETY MEASURES IMPLEMENTED. ALL NEEDS MET AND ATTENDED. ALL ORDERS CARRIED OUT. ENDORSED TO DAY SHIFT NURSE FOR ROSSY.
[2022-04-11 08:00] LABS: PLATELET COUNT (AUTO) 30 K/uL (150-450)
--- NOTE | 2022-04-11 08:00 | NUR ---
RN OPENING NOTE PATIENT AWAKE IN BED A/OX4, VENEZUELAN SPEAKING ABLE TO COMMUNICATE BASIC NEEDS. LATEST PLATELET WAS 30, NOTIFIED DR. WEBER, NO NEW ORDERS HAS BEEN MADE. DR WEBER VERBALIZED THERE IS NO NEED FOR BLOOD TRANSFUSION AT THIS TIME. R WRIST IV ACCESS PATENT AND INTACT WITH D5 NS ONGOING AT 75 ML/HR. PATIENT NOT IN ANY APPARENT DISTRESS. SAFETY MEASURES IN PLACE: BED LOCKED AND IN LOWEST POSITION, CALL LIGHT WITHIN REACH, SIDE RAILS UP. WILL MONITOR PATIENT CLOSELY.
[2022-04-11] MEDS: PANTOPRAZOLE 40 MG/PACK PACK PO SCH ×2 (08:32→17:54)
[2022-04-11] MEDS: LEVOTHYROXINE SODIUM 50 MCG TABLET PO SCH (08:32)
[2022-04-11 08:56] VITALS: BP 140/74
[2022-04-11 10:04] LABS: D-DIMER > 35.20 mg/L(FEU (0.17-0.50)
[2022-04-11 12:00] VITALS: BP 155/77
--- NOTE | 2022-04-11 19:35 | NUR ---
RN CLOSING NOTE PATIENT AWAKE, A/O X4. PATIENT ON RA, TOLERATING WELL. NO SOB NOTED. PATIENT NOT IN ANY APPARENT DISTRESS. PATIENT DOES NOT REPORT ANY PAIN AT THIS TIME. R WRIST IV ACCESS WITH ONGOING D5 NS AT 75 ML/HR. PATIENT TO BE TRANSFERRED FOR HIGHER LEVEL OF CARE. SAFETY MEASURES IMPLEMENTED. ALL NEEDS MET AND ATTENDED. ALL ORDERS CARRIED OUT. ENDORSED TO MACHINE MADE SHOE UNIT WORKER NURSE FOR ROSSY.
--- NOTE | 2022-04-11 19:35 | NUR ---
EVP MANAGING DIRECTOR OPENING NOTE RECEIVED PATIENT IN BED; AWAKE, ALERT AND ORIENTED X 4; ANGUILLAN SPEAKING. ON ROOM AIR; TOLERATING WELL. BREATHING EVEN AND NONLABORED. NOT IN ANY FORM OF RESPIRATORY DISTRESS. NO C/O ANY PAIN OR DISCOMFORT MADE AT THIS TIME. ON TELEMETRY MONITORING WITH READING OF SINUS RHYTHM HR-84 BPM. WITH IV ACCESS @ RIGHT WRIST 20G; PATENT AND INTACT INFUSING WITH D5NS 1L RUNNING @ 75 ML/HR; FLUSHES WELL. SAFETY MEASURES IMPLEMENTED: CALL LIGHT AND TABLE WITHIN REACH, SIDE RAILS UP X 2, BED IN LOWEST LOCKED POSITION. WILL CONTINUE TO MONITOR.
[2022-04-11 20:00] VITALS: BP 135/61
[2022-04-11 20:30] VITALS: BP 142/70
[2022-04-11] MEDS: TAMOXIFEN CITRATE 10 MG TABLET PO SCH (22:45)
[2022-04-12] VITALS (11 sets, daily range): BP systolic 116–144; BP diastolic 61–84
[2022-04-12 03:56] LABS: BASOPHILS % (MANUAL) 0 % (0.0-2.0); EOSINOPHILS % (MANUAL) 1 % (0-4); LYMPHOCYTES % (MANUAL) 49 % (16-48); MONOCYTES % (MANUAL) 10 % (0-11.0); NEUTROPHILS % (MANUAL) 40 (42-76)
--- NOTE | 2022-04-12 07:08 | NUR ---
RN NOTE TRANSFUSION OF CRYOPRECIPITATE 5U STARTED. NO ALLERGIC REACTIONS NOTED. VS TAKEN FOLLOWS: T-98.5, NV-97, RR-18, O2 SAT-96%, BP-136/70. PATIENT REMAINS STABLE. DENIES ANY PAIN OR DISCOMFORT. WILL CONTINUE TO MONITOR.
--- NOTE | 2022-04-12 07:23 | NUR ---
RN NOTE TRANSFUSION OF CRYOPRECIPITATE STILL ONGOING. NO ALLERGIC REACTIONS NOTED. VS TAKEN FOLLOWS: T-98.7, NE-95, RR-19, O2 SAT-97%, BP-138/68. PATIENT REMAINS STABLE. DENIES ANY PAIN OR DISCOMFORT. WILL CONTINUE TO MONITOR.
--- NOTE | 2022-04-12 07:30 | NUR ---
CLEANERS OPENING NOTES RECEIVED PT ON BED AWAKE AND A/O X4. ON ROOM AIR TOLERATING WELL. NO SOB NOTED. NOT IN DISTRESS. WITH NO COMPLAINTS OF PAIN AT THIS TIME. ON TELE MONITOR CURRENTLY READING SINUS RHYTHM AT 75BPM. WITH IV ACCESS AT THE RIGHT WRIST G20 WITH ONGOING PLASMA TRANSFUSION PATIENT TOLERATING WELL. SAFETY MEASURES IN PLACED. CALL LIGHT WITHIN REACH. BED ON LOWEST LOCKED POSITION, SIDE RAILS UP X2. WILL CONTINUE TO MONITOR.
--- NOTE | 2022-04-12 07:38 | NUR ---
RN NOTE TRANSFUSION OF CRYOPRECIPITATE 5U ENDED. NO ALLERGIC REACTIONS NOTED. VS TAKEN FOLLOWS: T-98.6, WA-93, RR-18, O2 SAT-97%, BP-132/65. PATIENT REMAINS STABLE. DENIES ANY PAIN OR DISCOMFORT. WILL CONTINUE TO MONITOR.
--- NOTE | 2022-04-12 07:57 | NUR ---
FACILITIES PROJECT MANAGER CLOSING NOTE PATIENT IN BED; AWAKE, A/O X 4; ALBANIAN SPEAKING. STABLE ON ROOM AIR. BREATHING EQUALLY AND NONLABORED. IN NO ACUTE DISTRESS. NO C/O ANY PAIN OR DISCOMFORT MADE AT THIS TIME. ON TELEMETRY MONITORING WITH READING OF SINUS RHYTHM HR-75 BPM. WITH IV ACCESS @ RIGHT WRIST 20G; PATENT AND INTACT INFUSING WITH D5NS 1L RUNNING @ 75 ML/HR; FLUSHES WELL. SAFETY PRECAUTIONS MAINTAINED: CALL LIGHT AND TABLE WITHIN REACH, SIDE RAILS UP X 2, BED IN LOWEST LOCKED POSITION. ENDORSED TO MORNING SHIFT FOR ROSSY.
[2022-04-12] MEDS: LEVOTHYROXINE SODIUM 50 MCG TABLET PO SCH (08:53)
[2022-04-12] MEDS: PANTOPRAZOLE 40 MG/PACK PACK PO SCH ×2 (08:53→17:29)
[2022-04-12] MEDS: IV D5/ 0.9% NACL 1,000 ML IV PRN (09:49)
[2022-04-12 11:18] LABS: BASOPHILS % (AUTO) 0.4 % (0.0-2.0); EOSINOPHILS % (AUTO) 0.5 % (0.0-6.0); HEMATOCRIT 28 % (33-45); HEMOGLOBIN 9.6 g/dL (11.5-14.8); LYMPHOCYTES % (AUTO) 34.9 % (20.0-44.0); MEAN CORPUSCULAR HGB CONC 35 g/dl (31.0-36.0); MEAN CORPUSCULAR VOLUME 87 fL (82-100); MONOCYTES # (AUTO) 1.2 K/uL (0.1-1.30); MONOCYTES % (AUTO) 13.3 % (2.0-12.0); NEUTROPHILS # (AUTO) 4.4 K/uL (1.8-8.9); NEUTROPHILS % (AUTO) 50.9 % (43.0-81.0); RED BLOOD CELL COUNT(AUTO) 3.17 MIL/uL (4.0-5.2); WHITE BLOOD COUNT (AUTO) 8.7 K/uL (4.3-11.0)
--- NOTE | 2022-04-12 11:51 | NUR ---
RN NOTE 2ND 5U OF PLASMA STARTED. V/S CHECKED PRIOR TO TRANSFUSION: BP-129/84, AK-83, TEMP-98F, RR-18 AND O2 SAT ON ROOM AIR-97%.
[2022-04-12 11:55] LABS: PLATELET COUNT (AUTO) 24 K/uL (150-450)
--- NOTE | 2022-04-12 12:40 | NUR ---
RN NOTES ENDED PLASMA TRANSFUSION. PATIENT'S VITAL SIGNS CHECKED: BP-132/68, KY-81, RR-18, TEMP-98.5F AND O2 SAT-97%.
[2022-04-12] MEDS ORDERED: CEFEPIME 1 GM VIAL IV SCH (13:00)
[2022-04-12] MEDS: ALLOPURINOL 100 MG TABLET PO SCH (13:14)
[2022-04-12] MEDS: ACYCLOVIR 200 MG CAPSULE PO SCH ×2 (13:14→17:29)
[2022-04-12] MEDS: CEFEPIME 2 GM in IV D5W 100 ML IV SCH (13:14)
[2022-04-12] MEDS: VORICONAZOLE 200 MG TABLET PO SCH ×2 (13:14→22:44)
[2022-04-12 14:32] LABS: D-DIMER > 35.20 mg/L(FEU (0.17-0.50)
[2022-04-12] MEDS: IRON SUCROSE COMPLEX 200 MG in IV NS 0.9% 100 ML IV SCH (15:55)
--- NOTE | 2022-04-12 18:40 | NUR ---
MANUAL ARTS THERAPIST CLOSING NOTES PT ON BED AWAKE AND A/O X4. ON ROOM AIR TOLERATING WELL. NO SOB NOTED. NOT IN DISTRESS. WITH NO COMPLAINTS OF PAIN AT THIS TIME. ON TELE MONITOR CURRENTLY READING SINUS RHYTHM AT 86BPM. WITH IV ACCESS AT THE RIGHT WRIST G20 WITH IVF D5NS AT 75ML/HR INFUSING WELL. DUE MEDS GIVEN. SAFETY MEASURES IN PLACED. CALL LIGHT WITHIN REACH. BED ON LOWEST LOCKED POSITION, SIDE RAILS UP X2. WILL ENDORSE TO NEXT SHIFT FOR ROSSY.
--- NOTE | 2022-04-12 19:00 | NUR ---
PEARL DIVER OPENING NOTES PT IS IN BED. AWAKE, ALERT AND ORIENTED; A/O X4. SHE IS ON ROOM AIR, TOLERATING WELL. NO S/S OF SOB OR DISTRESS. PT DENIES OF HAVING PAIN. SHE IS ON TELE MONITOR, HEART RHYTHM IS SR AT 80S AND CAN BE ST AT AROUND 120S WHEN SHE IS OUT OF BED AND GOES TO THE BEDSIDE COMMODE. IV ACCESS AT THE RIGHT WRIST, #20G, RUNNING D5NS @ 75 ML/HR. IV SITE IS PATENT AND INTACT. SAFETY MEASURES ARE IN PLACE: BED IN LOWEST AND LOCKED POSITION; SIDE RAILS UP X 2; CALL LIGHT AND TABLE ARE IN REACH. WILL CONTINUE MONITOR THE PATIENT AND PROVIDE THE CARE SHE NEEDS.
[2022-04-12] MEDS: TAMOXIFEN CITRATE 10 MG TABLET PO SCH (22:44)
[2022-04-13] MEDS: CEFEPIME 2 GM in IV D5W 100 ML IV SCH ×2 (00:06→13:27)
[2022-04-13] MEDS: IV D5/ 0.9% NACL 1,000 ML IV PRN (03:08)
[2022-04-13 04:26] LABS: BASOPHILS % (MANUAL) 0 % (0.0-2.0); EOSINOPHILS % (MANUAL) 0 % (0-4); LYMPHOCYTES % (MANUAL) 39 % (16-48); MONOCYTES % (MANUAL) 8 % (0-11.0); NEUTROPHILS % (MANUAL) 53 (42-76)
--- NOTE | 2022-04-13 06:58 | NUR ---
FINISH MENDER CLOSING NOTES PT IS IN BED. AWAKE, ALERT AND ORIENTED; A/O X4. SHE IS ON ROOM AIR, TOLERATING WELL. NO S/S OF SOB OR DISTRESS. PT DENIES OF HAVING PAIN. SHE IS ON TELE MONITOR, HEART RHYTHM IS SR AT 80S AND CAN BE ST AT AROUND 120S WHEN SHE IS OUT OF BED AND GOES TO THE BEDSIDE COMMODE. IV ACCESS AT THE RIGHT WRIST, #20G, RUNNING D5NS @ 75 ML/HR. IV SITE IS PATENT AND INTACT. SAFETY MEASURES ARE IN PLACE: BED IN LOWEST AND LOCKED POSITION; SIDE RAILS UP X 2; CALL LIGHT AND TABLE ARE IN REACH. WILL ENDORSE NEXT SHIFT NURSE FOR CONTINUING PATIENT CARE.
[2022-04-13 08:00] VITALS: BP 131/67
[2022-04-13 08:03] LABS: EOSINOPHILS % (AUTO) 0.4 % (0.0-6.0); HEMATOCRIT 26 % (33-45); HEMOGLOBIN 8.7 g/dL (11.5-14.8); LYMPHOCYTES # (AUTO) 2.2 K/uL (0.8-4.8); LYMPHOCYTES % (AUTO) 30.3 % (20.0-44.0); MEAN CORPUSCULAR HGB CONC 33 g/dl (31.0-36.0); MEAN CORPUSCULAR VOLUME 88 fL (82-100); MONOCYTES # (AUTO) 3.6 K/uL (0.1-1.30); MONOCYTES % (AUTO) 50.5 % (2.0-12.0); NEUTROPHILS # (AUTO) 1.3 K/uL (1.8-8.9); NEUTROPHILS % (AUTO) 18.8 % (43.0-81.0); RED BLOOD CELL COUNT(AUTO) 2.97 MIL/uL (4.0-5.2); WHITE BLOOD COUNT (AUTO) 7.1 K/uL (4.3-11.0)
[2022-04-13 08:25] LABS: PLATELET COUNT (AUTO) 18 K/uL (150-450)
[2022-04-13] MEDS: VORICONAZOLE 200 MG TABLET PO SCH ×2 (09:28→21:57)
[2022-04-13] MEDS: PANTOPRAZOLE 40 MG/PACK PACK PO SCH ×2 (09:28→18:21)
[2022-04-13] MEDS: ALLOPURINOL 100 MG TABLET PO SCH (09:28)
[2022-04-13] MEDS: LEVOTHYROXINE SODIUM 50 MCG TABLET PO SCH (09:32)
[2022-04-13] MEDS: ACYCLOVIR 200 MG CAPSULE PO SCH ×2 (09:55→18:22)
[2022-04-13 10:26] LABS: D-DIMER 35.2 mg/L(FEU (0.17-0.50)
[2022-04-13] MEDS ORDERED: diphenhydrAMINE HCL 50 MG/ML VIAL IV ONE (12:30)
[2022-04-13] MEDS ORDERED: ACETAMINOPHEN 325 MG TABLET PO ONE (12:30)
[2022-04-13 16:00] VITALS: BP 131/63
[2022-04-13 17:40] VITALS: BP 115/62
--- NOTE | 2022-04-13 17:53 | NUR ---
PLATELET CURRENTLY TRANSFUSING. TOLERATING WELL. VITALS STABLE. NO DISCOMFORT NOTED. SHARON Leal RN
[2022-04-13 17:55] VITALS: BP 107/64
[2022-04-13 20:00] VITALS: BP 123/64
--- NOTE | 2022-04-13 20:00 | NUR ---
INVESTMENT STRATEGIST OPENING NOTE RECEIVED PT IN BED, AWAKE. PT A/O X4, ENGLISH SPEAKING. ON ROOM AIR, TOLERATING RA WELL. NO SOB OR RESPIRATORY DISTRESS. PT DENIES PAIN AT THIS TIME. ON TELE MONITOR, HEART RHYTHM IS SR AT 84. IV ACCESS TO RIGHT WRIST #20G, RUNNING D5 NS @ 75 ML/HR. IV SITE PATENT AND INTACT. PLATELET TRANSFUSION COMPLETED. PT TOLERATED TRANSFUSION WELL. NO S/S OF ALLERGY, VS: BP: 123/64, P: 84, R: 19, T: 99.1, O2: 98%. SAFETY MEASURES IN PLACE: BED IN LOWEST AND LOCKED POSITION; SIDE RAILS UP X 2; CALL LIGHT AND TABLE ARE IN REACH. WILL CONTINUE TO MONITOR PATIENT.
[2022-04-13 20:46] LABS: BAND % (MANUAL) 1 % (0.0-5.0); LYMPHOCYTES % (MANUAL) 34 % (16-48); MONOCYTES % (MANUAL) 48 % (0-11.0); NEUTROPHILS % (MANUAL) 17 (42-76)
[2022-04-13] MEDS: TAMOXIFEN CITRATE 10 MG TABLET PO SCH (21:54)
[2022-04-14] MEDS: CEFEPIME 2 GM in IV D5W 100 ML IV SCH ×2 (00:33→13:59)
[2022-04-14 06:30] LABS: EOSINOPHILS % (AUTO) 0.4 % (0.0-6.0); HEMATOCRIT 25 % (33-45); HEMOGLOBIN 8.5 g/dL (11.5-14.8); LYMPHOCYTES # (AUTO) 2.3 K/uL (0.8-4.8); LYMPHOCYTES % (AUTO) 32.6 % (20.0-44.0); MEAN CORPUSCULAR HGB CONC 34 g/dl (31.0-36.0); MEAN CORPUSCULAR VOLUME 87 fL (82-100); MONOCYTES # (AUTO) 3.3 K/uL (0.1-1.30); MONOCYTES % (AUTO) 46.1 % (2.0-12.0); NEUTROPHILS # (AUTO) 1.5 K/uL (1.8-8.9); NEUTROPHILS % (AUTO) 20.9 % (43.0-81.0); RED BLOOD CELL COUNT(AUTO) 2.87 MIL/uL (4.0-5.2); WHITE BLOOD COUNT (AUTO) 7.1 K/uL (4.3-11.0)
[2022-04-14 06:52] LABS: PLATELET COUNT (AUTO) 33 K/uL (150-450)
--- NOTE | 2022-04-14 07:05 | NUR ---
DIRECTOR SUPPLY CHAIN CLOSING NOTES PT IS IN BED. AWAKE, ALERT AND ORIENTED; A/O X4. ON ROOM AIR, TOLERATING WELL. NO S/S OF SOB OR DISTRESS. PT DENIES OF HAVING PAIN. IV ACCESS WAS REINSERTED TO THE RIGHT FA #22G, RUNNING D5NS @ 75 ML/HR. IV SITE IS PATENT AND INTACT. SAFETY MEASURES ARE IN PLACE: BED IN LOWEST AND LOCKED POSITION; SIDE RAILS UP X 2; CALL LIGHT AND TABLE ARE IN REACH. WILL ENDORSE TO AM SHIFT NURSE FOR ROSSY.
[2022-04-14 08:00] VITALS: BP 131/69
[2022-04-14] MEDS: VORICONAZOLE 200 MG TABLET PO SCH ×2 (09:43→21:46)
[2022-04-14] MEDS: ALLOPURINOL 100 MG TABLET PO SCH (09:43)
[2022-04-14] MEDS: PANTOPRAZOLE 40 MG/PACK PACK PO SCH ×2 (09:43→17:11)
[2022-04-14] MEDS: LEVOTHYROXINE SODIUM 50 MCG TABLET PO SCH (09:43)
[2022-04-14] MEDS: ACYCLOVIR 200 MG CAPSULE PO SCH ×2 (10:11→17:15)
[2022-04-14 11:01] LABS: BASOPHILS % (MANUAL) 0 % (0.0-2.0); EOSINOPHILS % (MANUAL) 0 % (0-4); LYMPHOCYTES % (MANUAL) 36 % (16-48); MONOCYTES % (MANUAL) 43 % (0-11.0); NEUTROPHILS % (MANUAL) 21 (42-76)
[2022-04-14 12:00] VITALS: BP 126/62
[2022-04-14 13:06] LABS: D-DIMER 35.2 mg/L(FEU (0.17-0.50)
[2022-04-14 16:00] VITALS: BP 123/60
--- NOTE | 2022-04-14 19:00 | NUR ---
RETAIL LINK ANALYST CLOSING NOTES PATIENT LAYING IN BED, A/O X 3, ABLE TO MAKE NEEDS KNOWN, TOLERATING WELL ON ROOM AIR WITH NO S/S RESPIRATORY DISTRESS. NO COMPLAINTS OF PAIN OR DISCOMFORT AT THIS TIME. IV ACCESS IN RIGHT FA # 22 WITH D5 NS INFUSING @ 75 ML/HR. SAFETY MEASURES IN PLACE: BED IN LOWEST LOCKED POSITION, SIDE RAILS UP X 2, CALL LIGHT WITHIN REACH. ALL NEEDS MET. WILL ENDORSE TO PONDMAN FOR ROSSY.
--- NOTE | 2022-04-14 19:30 | NUR ---
DOOR TO DOOR SALESPERSON OPENING NOTE RECEIVED PT IN BED, AWAKE. PT A/O X4, WOLOF SPEAKING. ON ROOM AIR, TOLERATING RA WELL. NO SOB OR RESPIRATORY DISTRESS. PT DENIES PAIN AT THIS TIME. PT ON TELE MONITOR. IV ACCESS TO RIGHT FA #22G, RUNNING D5 NS @ 75 ML/HR. IV SITE PATENT AND INTACT. SAFETY MEASURES IN PLACE: BED IN LOWEST AND LOCKED POSITION; SIDE RAILS UP X 2; CALL LIGHT AND TABLE ARE IN REACH. WILL CONTINUE TO MONITOR PATIENT.
[2022-04-14 20:38] VITALS: BP 118/61
[2022-04-14] MEDS: TAMOXIFEN CITRATE 10 MG TABLET PO SCH (21:46)
[2022-04-15] VITALS (11 sets, daily range): BP systolic 108–139; BP diastolic 43–68
[2022-04-15] MEDS: CEFEPIME 2 GM in IV D5W 100 ML IV SCH (02:19)
--- NOTE | 2022-04-15 07:00 | NUR ---
FURNACE FILLER CLOSING NOTE PT LEFT IN BED, IN STABLE CONDITION. PT HAS ORDER FOR 10 UNIITS OF CREOPRECIPITATE TRANSFUSION, BUT LAB NOT REDY YET WILL ENDORSE TO AM SHIFT NURSE FOR ROSSY.
--- NOTE | 2022-04-15 07:30 | NUR ---
SURVEILLANCE SPECIALIST OPENING NOTES RECEIVED PATIENT ON BED AWAKE AND A/O X4, ZIMBABWEAN SPEAKING. ON ROOM AIR TOLERATING WELL. NO SOB NOTED. NOT IN DISTRESS. WITH NO COMPLAINTS OF PAIN AT THIS TIME. ON TELE MONITOR CURRENTLY READING SINUS RHYTHM AT 83BPM. WITH IV ACCESS AT THE RIGHT FOREARM G22 WITH IVF D5NS AT 75ML/HR INFUSING WELL. SAFETY MEASURE SIN PLACED. CALL LIGHT WITHIN REACH. BED ON LOWEST LOCKED POSITION, SIDE RAILS UP X2. WILL CONTINUE TO MONITOR.
[2022-04-15 08:09] LABS: CALCIUM, SERUM 8.6 mg/dL (8.5-10.1); CREATININE 1.2 mg/dL (0.6-1.3); POTASSIUM 3.8 mmol/L (3.5-5.1)
[2022-04-15] MEDS: PANTOPRAZOLE 40 MG/PACK PACK PO SCH ×2 (08:24→16:09)
[2022-04-15] MEDS: VORICONAZOLE 200 MG TABLET PO SCH ×2 (08:24→21:23)
[2022-04-15] MEDS: LEVOTHYROXINE SODIUM 50 MCG TABLET PO SCH (08:24)
[2022-04-15] MEDS: ALLOPURINOL 100 MG TABLET PO SCH (08:24)
[2022-04-15] MEDS: ACYCLOVIR 200 MG CAPSULE PO SCH ×2 (08:25→16:09)
[2022-04-15 08:46] LABS: BASOPHILS % (AUTO) 0.3 % (0.0-2.0); EOSINOPHILS % (AUTO) 0.3 % (0.0-6.0); HEMATOCRIT 25 % (33-45); HEMOGLOBIN 8.5 g/dL (11.5-14.8); LYMPHOCYTES # (AUTO) 2.5 K/uL (0.8-4.8); LYMPHOCYTES % (AUTO) 31.6 % (20.0-44.0); MEAN CORPUSCULAR HGB CONC 34 g/dl (31.0-36.0); MEAN CORPUSCULAR VOLUME 87 fL (82-100); MONOCYTES # (AUTO) 1.4 K/uL (0.1-1.30); MONOCYTES % (AUTO) 17.9 % (2.0-12.0); NEUTROPHILS % (AUTO) 49.9 % (43.0-81.0); RED BLOOD CELL COUNT(AUTO) 2.89 MIL/uL (4.0-5.2)
[2022-04-15 08:48] LABS: PLATELET COUNT (AUTO) 26 K/uL (150-450)
[2022-04-15 08:57] LABS: D-DIMER > 35.20 mg/L(FEU (0.17-0.50)
--- NOTE | 2022-04-15 09:37 | NUR ---
RN NOTE PATIENT'S FIBRINOGEN IS 118 AND DOCTOR ORDERED 10U OF CRYOPRECIPITATE TO TRANSFUSE. WITH STABLE VITAL SIGNS AND CHECKED WITH RN MAITE. STARTED CRYOPRECIPITATE TRANSFUSION. WILL MONITOR.
[2022-04-15 09:59] LABS: BAND % (MANUAL) 8 % (0.0-5.0); LYMPHOCYTES % (MANUAL) 35 % (16-48); METAMYELOCYTES % 3 % (0-0); MONOCYTES % (MANUAL) 8 % (0-11.0); MYELOCYTES % 3 % (0-0); NEUTROPHILS % (MANUAL) 40 (42-76); REACTIVE LYMPHOCYTES 3 % (0-0)
--- NOTE | 2022-04-15 10:40 | NUR ---
RN NOTE ENDED 5U CRYOPRECIPITATE TRANSFUSION. WITH STABLE VITAL SIGNS. WILL FOLLOW-UP FOR THE 2ND 5U CRYOPRECIPITATE..
--- NOTE | 2022-04-15 12:00 | NUR ---
RN NOTE PATIENT WAS COMPLAINING OF NOT HAVING BOWEL MOVEMENT FOR 7DAYS. REPORTED TO DR. HENDERSON AND ORDERED COLACE 100MG CAPSULE BID AND DULCOLAX 5MG TAB PO DAILY PRN FOR CONSTIPATION.
[2022-04-15] MEDS: BISACODYL (5 MG) 5 MG TABLET.DR PO PRN (12:37)
[2022-04-15] MEDS: DOCUSATE SODIUM 100 MG CAPSULE PO SCH ×2 (12:37→16:09)
[2022-04-15] MEDS: IV D5/ 0.9% NACL 1,000 ML IV PRN (14:00)
--- NOTE | 2022-04-15 14:40 | NUR ---
RN NOTE REPORTED TO DR. HENDERSON THAT PATIENT HASN'T HAD BOWEL MOVEMENT EVEN WAS GIVEN COLACE AND DULCOLAX PO. DOCTOR ORDERED DULCOLAX 10MG SUPPOSITORY PRN FOR CONSTIPATION AND IF THE SUPPOSITORY WILL NOT WORK IN AN HOUR THEN GIVE FLEET ENEMA PRN FOR CONSTIPATION. WILL MONITOR.
[2022-04-15] MEDS: BISACODYL SUPP (10 MG) 10 MG/SUPP.RECT SUPP.RECT RC PRN (14:58)
[2022-04-15] MEDS ORDERED: MINERAL OIL 133 ML (PYXIS) 1 EA ENEMA RC PRN (16:30)
--- NOTE | 2022-04-15 17:00 | NUR ---
RN NOTE STARTED 5U CRYOPRECIPITATE TRANSFUSION. WITH STABLE VITAL SIGNS, AFEBRILE.
--- NOTE | 2022-04-15 17:38 | NUR ---
RN NOTE CRYOPRECIPITATE TRANSFUSION ENDED. WITH STABLE VITAL SIGNS.
--- NOTE | 2022-04-15 18:34 | NUR ---
WEIGHER AND CHARGER CLOSING NOTES PATIENT ON BED AWAKE AND A/O X4, TUNISIAN SPEAKING. ON ROOM AIR TOLERATING WELL. NO SOB NOTED. NOT IN DISTRESS. WITH NO COMPLAINTS OF PAIN AT THIS TIME. ON TELE MONITOR CURRENTLY READING SINUS TACHYCARDIA AT 104BPM. WITH IV ACCESS AT THE RIGHT FOREARM G22 WITH IVF D5NS AT 75ML/HR INFUSING WELL. DUE MEDS GIVEN. SAFETY MEASURES IN PLACED. CALL LIGHT WITHIN REACH. BED ON LOWEST LOCKED POSITION, SIDE RAILS UP X2. WILL ENDORSE TO NEXT SHIFT FOR ROSSY.
--- NOTE | 2022-04-15 19:42 | NUR ---
AFFILIATE MANAGER OPENING NOTES; RECEIVED PATIENT ON BED AWAKE AND A/O X4, EGYPTIAN SPEAKING. ON ROOM AIR TOLERATING WELL. NO SOB/ DISTRESS NOTED,NO COMPLAINTS OF PAIN/DISCOMFORT AT THIS TIME. ON TELE MONITOR CURRENTLY READING SINUS RHYTHM AT 81BPM. WITH IV ACCESS AT THE RIGHT FOREARM G22 WITH IVF D5NS AT 75ML/HR INFUSING WELL. SAFETY MEASURE SIN PLACED. CALL LIGHT WITHIN REACH. BED ON LOWEST LOCKED POSITION, SIDE RAILS UP X2. WILL CONTINUE TO MONITOR.
[2022-04-15] MEDS: TAMOXIFEN CITRATE 10 MG TABLET PO SCH (21:14)
[2022-04-16] VITALS: BP 134/63
[2022-04-16] MEDS: CEFEPIME 2 GM in IV D5W 100 ML IV SCH (03:25)
[2022-04-16 04:00] VITALS: BP 123/56
[2022-04-16 05:35] LABS: EOSINOPHILS % (AUTO) 0.4 % (0.0-6.0); HEMATOCRIT 24 % (33-45); HEMOGLOBIN 8.2 g/dL (11.5-14.8); LYMPHOCYTES # (AUTO) 2.5 K/uL (0.8-4.8); LYMPHOCYTES % (AUTO) 31.5 % (20.0-44.0); MEAN CORPUSCULAR HGB CONC 34 g/dl (31.0-36.0); MEAN CORPUSCULAR VOLUME 88 fL (82-100); MONOCYTES # (AUTO) 4.4 K/uL (0.1-1.30); MONOCYTES % (AUTO) 54.6 % (2.0-12.0); NEUTROPHILS # (AUTO) 1.1 K/uL (1.8-8.9); NEUTROPHILS % (AUTO) 13.5 % (43.0-81.0); RED BLOOD CELL COUNT(AUTO) 2.75 MIL/uL (4.0-5.2)
[2022-04-16 05:43] LABS: PLATELET COUNT (AUTO) 19 K/uL (150-450)
[2022-04-16 05:44] LABS: CALCIUM, SERUM 7.8 mg/dL (8.5-10.1); CREATININE 1.1 mg/dL (0.6-1.3); POTASSIUM 3.8 mmol/L (3.5-5.1)
[2022-04-16 06:00] LABS: D-DIMER 35.2 mg/L(FEU (0.17-0.50)
--- NOTE | 2022-04-16 06:23 | NUR ---
RN NOTES; I TEXTED DOC,BANDAR RANGEL.PLATELET LEVEL 19.RESPONCED NO NEW ORDER.
--- NOTE | 2022-04-16 06:38 | NUR ---
STEWARD/STEWARDESS THIRD CLASS OPENING NOTES; PATIENT IN BED AWAKE AND A/O X4, TRISTANIAN SPEAKING WITH A LITTLE WELSH,ON ROOM AIR TOLERATING WELL. NO SOB/ DISTRESS NOTED,NO COMPLAINTS OF PAIN/DISCOMFORT DURING SHIFT. ON TELE MONITOR CURRENTLY READING SINUS RHYTHM AT 84BPM.DUE MEDS GIVEN ORDER,ALL NEEDS ATTENDED, WITH IV ACCESS AT THE RIGHT FOREARM G22 WITH IVF D5NS AT 75ML/HR INFUSING WELL. SAFETY MEASURE SIN PLACED. CALL LIGHT WITHIN REACH. BED ON LOWEST LOCKED POSITION, SIDE RAILS UP X2. WILL ENDORSED TO NEXT SHIFT.
--- NOTE | 2022-04-16 07:00 | NUR ---
ROVING INSPECTOR OPENING NOTES; RECEIVED PATIENT IN BED AWAKE AND A/O X4, BELIZEAN SPEAKING ABLE TO SPEAK AND UNDERSTAND LITTLE GREENLANDIC,ON ROOM AIR TOLERATING WELL. NO SOB/ DISTRESS NOTED,NO COMPLAINTS OF PAIN/DISCOMFORT AT THIS TIME. ON TELE MONITOR CURRENTLY READING SINUS RHYTHM AT 80BPM.WITH IV ACCESS AT THE RIGHT FOREARM G22 PATENT AND INTACT AND INFUSING WITH IVF D5NS AT 75ML/HR. SAFETY MEASURES IN PLACE. CALL LIGHT WITHIN REACH. BED ON LOWEST LOCKED POSITION, SIDE RAILS UP X2. WILL ENDORSED TO NEXT SHIFT.
[2022-04-16 08:00] VITALS: BP 128/64
[2022-04-16] MEDS: VORICONAZOLE 200 MG TABLET PO SCH ×2 (09:04→21:08)
[2022-04-16] MEDS: LEVOTHYROXINE SODIUM 50 MCG TABLET PO SCH (09:04)
[2022-04-16] MEDS: DOCUSATE SODIUM 100 MG CAPSULE PO SCH ×2 (09:04→16:49)
[2022-04-16] MEDS: ALLOPURINOL 100 MG TABLET PO SCH (09:04)
[2022-04-16] MEDS: PANTOPRAZOLE 40 MG/PACK PACK PO SCH ×2 (09:04→16:49)
[2022-04-16] MEDS: ACYCLOVIR 200 MG CAPSULE PO SCH ×2 (09:08→16:49)
--- NOTE | 2022-04-16 11:00 | NUR ---
RN NOTES: CLARIFIED TO BERNA SELF IF I NEED TO PUT PLATELET ORDER STAT OR ROUTINE, PER LAB (SIR WALESKA) STAT ORDER WILL TAKE BLOOD BANK TO RELEASE IN 1-2 HOURS AFTER ORDERING AND ROUTINE ORDER WILL TAKE 6-8HOURS BEFORE BLOOD BANK TO RELEASE PLATELETS.INFORMED BERNA SELF AND BERNA SELF SAID ITS FINE TO WAIT AND NO NEED TO CHANGE ORDER TO STAT BERNA SELF STATED " PATIENT WILL BE TRANSFERRED TO [facility] TODAY.
[2022-04-16 11:25] LABS: BAND % (MANUAL) 7 % (0.0-5.0); EOSINOPHILS % (MANUAL) 1 % (0-4); LYMPHOCYTES % (MANUAL) 52 % (16-48); METAMYELOCYTES % 2 % (0-0); MONOCYTES % (MANUAL) 4 % (0-11.0); MYELOCYTES % 2 % (0-0); NEUTROPHILS % (MANUAL) 24 (42-76); REACTIVE LYMPHOCYTES 4 % (0-0)
[2022-04-16] MEDS ORDERED: diphenhydrAMINE HCL 50 MG/ML VIAL IV ONE (11:30)
[2022-04-16] MEDS ORDERED: ACETAMINOPHEN 325 MG TABLET PO ONE (11:30)
[2022-04-16 12:00] VITALS: BP 123/57
[2022-04-16 16:00] VITALS: BP 138/62
[2022-04-16] MEDS: IV D5/ 0.9% NACL 1,000 ML IV PRN (18:38)
--- NOTE | 2022-04-16 19:05 | NUR ---
DENTAL HYGIENIST MOBILE COORDINATOR CLOSING NOTES; PATIENT IN BED AWAKE AND A/O X4, KAZAKH SPEAKING WITH A LITTLE VINCENTIAN,ON ROOM AIR TOLERATING WELL. NO SOB/ DISTRESS NOTED,NO COMPLAINTS OF PAIN/DISCOMFORT DURING SHIFT.PATIENT IS VERY PLEASANT.ON TELE MONITOR CURRENTLY READING SINUS RHYTHM AT 96 BPM WITH PACS.DUE MEDS GIVEN ORDER, WITH IV ACCESS AT THE RIGHT FOREARM G22 WITH IVF D5NS AT 75ML/HR INFUSING WELL. SAFETY MEASURE SIN PLACED. CALL LIGHT WITHIN REACH. BED ON LOWEST LOCKED POSITION, SIDE RAILS UP X2.ENDORSED TO APPRENTICE COSMETOLOGIST RN FOR CONTINUITY OF CARE.
--- NOTE | 2022-04-16 19:38 | NUR ---
RN OPENING NOTES RECEIVED PT IN BED, AWAKE ,WATCHING TV. AOx4, ABLE TO MAKE NEEDS KNOWN. ON RA AND TOLERATING WELL. NO SOB NOTED. NO S/SX OF RESPIRATORY DISTRESS NOTED. IV ACCES IN RFA #22GG RUNNING N @ 75 ML/HR. SAFETY PRECAUTIONS IN PLACE: BED IN LOWEST, LOCKED POSITION, SIDERAILS UPx2, AND BRAKES ON. TABLE AND CALL LIGHT WITHIN REACH. ALL NEEDS MET AT THIS TIME.
[2022-04-16 20:00] VITALS: BP 129/57
[2022-04-16] MEDS: TAMOXIFEN CITRATE 10 MG TABLET PO SCH (21:07)
[2022-04-17] VITALS (13 sets, daily range): BP systolic 104–126; BP diastolic 43–94
[2022-04-17] MEDS: CEFEPIME 2 GM in IV D5W 100 ML IV SCH (03:29)
--- NOTE | 2022-04-17 04:10 | NUR ---
RN NOTES SPOKE TO BLOOD BANK PERSONNEL ABOUT PLATELETS AND SAID THEY HAVE NOT RECEIVED PLATELETS FROM [facility] AND THAT THEY WILL CHECK AGAIN IN THE MORNING.
--- NOTE | 2022-04-17 06:43 | NUR ---
RN CLOSING NOTES PT IN BED, AWAKE ,WATCHING TV. AOx4, ABLE TO MAKE NEEDS KNOWN. ON RA AND TOLERATING WELL. NO SOB NOTED. NO S/SX OF RESPIRATORY DISTRESS NOTED. IV ACCES IN RFA #22GG RUNNING D5NS @ 75 ML/HR. ALL ORDERS CARRIED OUT. ALL NEEDS MET. PT KEPT CLEAN AND DRY. SAFETY PRECAUTIONS IN PLACE: BED IN LOWEST, LOCKED POSITION, SIDERAILS UPx2, AND BRAKES ON. TABLE AND CALL LIGHT WITHIN REACH. WILL ENDORSE TO ONCOMING SHIFT FOR ROSSY.
--- NOTE | 2022-04-17 07:35 | NUR ---
MANAGER STUDIO OPENING NOTES; RECEIVED PATIENT IN BED AWAKE, CALM, A/O X4, BRUNEIAN SPEAKING, ABLE TO UNDERSTAND LITHUANIAN BUT CANNOT SPEAK IT, DAUGHTER IS CALLED TO TRANSLATE, ON ROOM AIR TOLERATING WELL. NO SOB NOR ANY APPARENT DISTRESS NOTED,NO COMPLAINTS OF PAIN/DISCOMFORT AT THIS TIME. ON TELE MONITOR CURRENTLY READING SINUS RHYTHM AT 80 BPM. IV ACCESS AT THE RIGHT FOREARM G#22 PATENT AND INTACT AND INFUSING D5NS AT 75ML/HR. SAFETY MEASURES IN PLACE. CALL LIGHT AND TRAY TABLE WITHIN REACH. BED ON LOWEST LOCKED POSITION, SIDE RAILS UP X2. WILL CONTINUE TO MONITOR.
[2022-04-17 08:01] LABS: BASOPHILS % (AUTO) 0.6 % (0.0-2.0); EOSINOPHILS % (AUTO) 0.2 % (0.0-6.0); HEMATOCRIT 25 % (33-45); HEMOGLOBIN 8.2 g/dL (11.5-14.8); LYMPHOCYTES # (AUTO) 2.5 K/uL (0.8-4.8); LYMPHOCYTES % (AUTO) 33.6 % (20.0-44.0); MEAN CORPUSCULAR HGB CONC 33 g/dl (31.0-36.0); MEAN CORPUSCULAR VOLUME 90 fL (82-100); MONOCYTES # (AUTO) 2.4 K/uL (0.1-1.30); MONOCYTES % (AUTO) 31.7 % (2.0-12.0); NEUTROPHILS # (AUTO) 2.5 K/uL (1.8-8.9); NEUTROPHILS % (AUTO) 33.9 % (43.0-81.0); RED BLOOD CELL COUNT(AUTO) 2.74 MIL/uL (4.0-5.2); WHITE BLOOD COUNT (AUTO) 7.5 K/uL (4.3-11.0)
[2022-04-17] MEDS: PANTOPRAZOLE 40 MG/PACK PACK PO SCH ×2 (08:13→17:50)
[2022-04-17] MEDS: DOCUSATE SODIUM 100 MG CAPSULE PO SCH ×2 (08:13→17:46)
[2022-04-17] MEDS: LEVOTHYROXINE SODIUM 50 MCG TABLET PO SCH (08:14)
[2022-04-17] MEDS: ACYCLOVIR 200 MG CAPSULE PO SCH ×2 (08:14→17:45)
[2022-04-17] MEDS: ALLOPURINOL 100 MG TABLET PO SCH (08:14)
[2022-04-17 08:20] LABS: PLATELET COUNT (AUTO) 17 K/uL (150-450)
[2022-04-17 08:30] LABS: CALCIUM, SERUM 8.4 mg/dL (8.5-10.1); CREATININE 1.1 mg/dL (0.6-1.3); POTASSIUM 3.8 mmol/L (3.5-5.1)
--- NOTE | 2022-04-17 09:00 | NUR ---
RN NOTES - PLATELET FOLLOW UP CALLED LABORATORY TO CHECK IF PLATELET WAS READY, WAS TOLD THAT IT SHOULD BE READY AT AROUND 6 HOURS ONWARDS IT WASNT STAT, CHARGE NURSE AWARE, 2 CRYOPRECIPITATE BAGS ORDERED WELL.
[2022-04-17] MEDS: VORICONAZOLE 200 MG TABLET PO SCH ×2 (09:10→21:34)
[2022-04-17 09:44] LABS: D-DIMER 35.2 mg/L(FEU (0.17-0.50)
[2022-04-17] MEDS ORDERED: ACETAMINOPHEN 325 MG TABLET PO ONE (10:30)
[2022-04-17] MEDS ORDERED: diphenhydrAMINE HCL 50 MG/ML VIAL IV ONE (10:30)
[2022-04-17] MEDS: BISACODYL (5 MG) 5 MG TABLET.DR PO PRN (14:09)
--- NOTE | 2022-04-17 14:15 | NUR ---
RN NOTES - PATIENT COMPLAINING OF CONSTIPATION, ADMINISTERED DULCOLAX 5MG PO ORDERED
--- NOTE | 2022-04-17 15:00 | NUR ---
RN NOTES - 2 BAGS OF 5U CRYOPRECIPITATE TRANSFUSED SUCCESSFULLY WITHOUT ANY REACTION. ADMINISTERED BENADRYL 12.5 MG IV AND ACETAMINOPHEN PO PRIOR TO TRANSFUSION. STAY WITH THE PATIENT ON 2 SEPARATE TRANSFUSION, VITAL SIGNS STABLE.
[2022-04-17 16:51] LABS: BAND % (MANUAL) 3 % (0.0-5.0); LYMPHOCYTES % (MANUAL) 47 % (16-48); MONOCYTES % (MANUAL) 20 % (0-11.0); NEUTROPHILS % (MANUAL) 20 (42-76); REACTIVE LYMPHOCYTES 10 % (0-0)
--- NOTE | 2022-04-17 19:30 | NUR ---
PULMONOLOGIST INTENSIVIST CLOSING NOTES; PATIENT IN BED AWAKE, CALM, A/O X4, ON ROOM AIR TOLERATING WELL. NO SOB NOR ANY APPARENT DISTRESS NOTED,NO COMPLAINTS OF PAIN/DISCOMFORT AT THIS TIME. ON TELE MONITOR CURRENTLY READING SINUS RHYTHM AT 87 BPM. STILL WITH IV ACCESS AT THE RIGHT FOREARM G#22 PATENT AND INTACT AND INFUSING D5NS AT 75ML/HR. ALL NEEDS MET, ALL DUE MEDS GIVEN. SAFETY MEASURES MAINTAINED. CALL LIGHT AND TRAY TABLE WITHIN REACH. BED ON LOWEST LOCKED POSITION, SIDE RAILS UP X2. ENDORSED TO WALL TO WALL CARPET INSTALLER NURSE.
--- NOTE | 2022-04-17 19:30 | NUR ---
SOFTWARE PROGRAMMER OPENING NOTE RECEIVED PT AWAKE IN BED. A/O X4 AND [place]BANIAN SPEAKING. PT STABLE ON ROOM AIR. NO SOB OR S/S OF RESPIRATORY DISTRESS. BREATHING EVEN AND UNLABORED. ON EXTERNAL SUPERVISOR FRUIT GRADING READING SR 88 BPM. IV ACCESS RFA 22G RUNNING D5NS @ 75 ML/HR, INTACT AND PATENT. SAFETY PRECAUTIONS IN PLACE. BED IN LOWEST LOCKED POSITION, HOB ELEVATED, SIDE RAILS UP X3, AND CALL LIGHT AND TABLE WITHIN REACH. ALL NEEDS MET AT THIS TIME.
[2022-04-17] MEDS: TAMOXIFEN CITRATE 10 MG TABLET PO SCH (21:35)
--- NOTE | 2022-04-17 21:39 | NUR ---
RN NOTE PT TEMP WAS 99.7. COOLING MEASURES APPLIED. RECHECKED TEMP AND IS CURRENTLY 98.5. ALL NEEDS MET AT THIS TIME.
--- NOTE | 2022-04-17 23:42 | NUR ---
RN NOTE UPON FOLLOWING UP FOR PLATELETS, INFORMED BY BLOOD BANK THAT TYPE AND SCREEN IS . NEW ORDER FOR TYPE AND SCREEN NOTED AND CARRIED OUT. CALLED BLOOD BANK TO INFORM THAT ORDER IS PLACED AND WAS INFORMED THEY WOULD BE SENDING LAB NOW. PENDING LAB DRAW.
[2022-04-18] VITALS (16 sets, daily range): BP systolic 120–152; BP diastolic 54–78
[2022-04-18] MEDS: CEFEPIME 2 GM in IV D5W 100 ML IV SCH (02:43)
--- NOTE | 2022-04-18 06:41 | NUR ---
NUCLEAR POWERPLANT SUPERVISOR CLOSING NOTE PT AWAKE IN BED. A/O X4 AND [place]ON[place] SPEAKING. PT STABLE ON ROOM AIR. NO SOB OR S/S OF RESPIRATORY DISTRESS. BREATHING EVEN AND UNLABORED. ON EXTERNAL MANNEQUIN COLORING ARTIST READING SR 87 BPM. IV ACCESS RFA 22G RUNNING D5NS @ 75 ML/HR, INTACT AND PATENT. 1 BAG OF PLATELETS GIVEN ORDERED, TOLERATED WELL, NO ADVERSE REACTION. ALL DUE MEDS GIVEN ORDERED. SAFETY PRECAUTIONS IN PLACE AT ALL TIMES. BED IN LOWEST LOCKED POSITION, HOB ELEVATED, SIDE RAILS UP X3, AND CALL LIGHT AND TABLE WITHIN REACH. ALL NEEDS MET AT THIS TIME AND WILL ENDORSE TO ONCOMING NURSE FOR ROSSY.
--- NOTE | 2022-04-18 07:30 | NUR ---
ASSISTANT PROFESSOR NURSE EDUCATION OPENING NOTE RECEIVED PT AWAKE, SITTING ON THE EDGE OF THE BED, A/O X4 AND IVORIAN SPEAKING. PT STABLE ON ROOM AIR. NO SOB OR S/S OF RESPIRATORY DISTRESS. BREATHING EVEN AND UNLABORED. ON EXTERNAL TINNER AUTOMATIC READING SR 83 BPM. IV ACCESS RFA 22G RUNNING D5NS @ 75 ML/HR, INTACT AND PATENT, FLUSHES WELL. SAFETY PRECAUTIONS IN PLACE: BED IN LOWEST LOCKED POSITION, HOB ELEVATED, SIDE RAILS UP X3, AND CALL LIGHT AND TABLE WITHIN REACH. WILL CONTINUE TO MONITOR.
[2022-04-18 07:32] LABS: BASOPHILS # (AUTO) 0.1 K/uL (0.0-0.2); BASOPHILS % (AUTO) 0.7 % (0.0-2.0); EOSINOPHILS % (AUTO) 0.2 % (0.0-6.0); HEMATOCRIT 24 % (33-45); HEMOGLOBIN 7.8 g/dL (11.5-14.8); LYMPHOCYTES # (AUTO) 2.2 K/uL (0.8-4.8); LYMPHOCYTES % (AUTO) 27.5 % (20.0-44.0); MEAN CORPUSCULAR HGB CONC 33 g/dl (31.0-36.0); MEAN CORPUSCULAR VOLUME 89 fL (82-100); MONOCYTES # (AUTO) 1.2 K/uL (0.1-1.30); MONOCYTES % (AUTO) 15.9 % (2.0-12.0); NEUTROPHILS # (AUTO) 4.4 K/uL (1.8-8.9); NEUTROPHILS % (AUTO) 55.7 % (43.0-81.0); PLATELET COUNT (AUTO) 64 K/uL (150-450); RED BLOOD CELL COUNT(AUTO) 2.66 MIL/uL (4.0-5.2); WHITE BLOOD COUNT (AUTO) 7.9 K/uL (4.3-11.0)
[2022-04-18 07:46] LABS: CALCIUM, SERUM 8.2 mg/dL (8.5-10.1); CREATININE 1.1 mg/dL (0.6-1.3); POTASSIUM 3.6 mmol/L (3.5-5.1)
[2022-04-18] MEDS: DOCUSATE SODIUM 100 MG CAPSULE PO SCH ×2 (08:24→16:21)
[2022-04-18] MEDS: ALLOPURINOL 100 MG TABLET PO SCH (08:24)
[2022-04-18] MEDS: ACYCLOVIR 200 MG CAPSULE PO SCH ×2 (08:24→16:21)
[2022-04-18] MEDS: LEVOTHYROXINE SODIUM 50 MCG TABLET PO SCH (08:24)
[2022-04-18] MEDS: PANTOPRAZOLE 40 MG/PACK PACK PO SCH ×2 (08:24→16:21)
[2022-04-18] MEDS: VORICONAZOLE 200 MG TABLET PO SCH ×2 (08:25→21:19)
[2022-04-18 09:09] LABS: D-DIMER 35.2 mg/L(FEU (0.17-0.50)
[2022-04-18] MEDS ORDERED: diphenhydrAMINE HCL 50 MG/ML VIAL IV ONE ×3 (14:00→18:00)
[2022-04-18] MEDS ORDERED: ACETAMINOPHEN 325 MG TABLET PO ONE ×3 (14:00→18:00)
[2022-04-18] MEDS: IV D5/ 0.9% NACL 1,000 ML IV PRN (17:17)
[2022-04-18 17:43] LABS: BAND % (MANUAL) 4 % (0.0-5.0); LYMPHOCYTES % (MANUAL) 40 % (16-48); NEUTROPHILS % (MANUAL) 40 (42-76)
[2022-04-18 17:44] LABS: MONOCYTES % (MANUAL) 16 % (0-11.0)
[2022-04-18] MEDS: BISACODYL SUPP (10 MG) 10 MG/SUPP.RECT SUPP.RECT RC PRN (17:57)
--- NOTE | 2022-04-18 18:22 | NUR ---
RN NOTES - BLOOD TRANSFUSION STARTED, PRBC 340 ML, INITIAL VS TAKEN, STABLE
--- NOTE | 2022-04-18 18:33 | NUR ---
RN NOTES - RECEIVED A CALL FROM EMIL FROM [facility] THAT PATIENT WILL BE PICKED UP AT 0800 BY [facility]. PATIENT WILL BE RECEIVED BY DR AVALOS AT ROOM [id number], PHONE NUMBER TO GIVE REPORT TO WILL BE [phone]. WILL ENDORSE TO THE NEXT NURSE. PATIENT AND DAUGHTER AWARE.
--- NOTE | 2022-04-18 18:46 | NUR ---
RN NOTES - 1ST 15 MINS NO REACTION, VS FOLLOWS T- 97.3 BP- 144/69 HR-97 RR-18
--- NOTE | 2022-04-18 19:15 | NUR ---
RN NOTES - CONSTIPATION RESOLVED GIVEN THE PATIENT DULCOLAX SUPPOSITORY AND PATIENT WAS ABLE TO DEFECATE FORMED SOFT BROWN STOOL - NOT TARRY
--- NOTE | 2022-04-18 19:26 | NUR ---
DOLL WIG MAKER ROOTED HAIR CLOSING NOTE PT AWAKE WITH HEAD OF BED ELEVATED, A/O X4 AND OMANI SPEAKING. CURRENTLY TRANSFUSING PRBC 340 ML @ 100 ML/HR, NO REACTION NOTED IN THE FIRST 15 MINS. STILL ON ROOM AIR.STABLE NO SOB OR S/S OF RESPIRATORY DISTRESS. BREATHING EVEN AND UNLABORED. ON EXTERNAL ADJUNCT SOCIOLOGY PROFESSOR READING SINUS TACHY AT 110. IV ACCESS RFA 22G, INTACT AND PATENT, D5NS @75 ML ON HOLD. SAFETY PRECAUTIONS MAINTAINED: BED IN LOWEST LOCKED POSITION, HOB ELEVATED, SIDE RAILS UP X3, AND CALL LIGHT AND TABLE WITHIN REACH. ALL DUE MEDS GIVEN, ALL NEEDS MET. ALL DISCHARGE ENDORSEMENTS GIVEN TO RN SEPTEMBER.
--- NOTE | 2022-04-18 19:30 | NUR ---
EXECUTIVE COORDINATOR OPENING NOTES RECEIVED PATIENT IN BED WITH EYES CLOSED, EASY TO AROUSE. A/O X4, CROATIAN SPEAKING. DAUGHTER TRANSLATES THROUGH PHONE. CURRENTLY HAVING BLOOD TRANSFUSION. NOT IN APPARENT DISTRESS. BREATHING EVEN AND NON-LABORED ON ROOM AIR. NO C/O PAIN OR DISCOMFORT. ON TELE MONITOR READING SINUS RHYTHM AT 78 BPM. HAS RIGHT FOREARM IV ACCESS #22G WITH 1 BAG OF LEUKOCYTE-REDUCED RBC RUNNING AT 100 ML/HR. NO S/S OF INFILTRATION NOTED. NO BLOOD NOTED IN THE STOOL. SAFETY PRECAUTIONS IN PLACE: BED LOCKED AND IN LOWEST POSITION, SIDE RAILS UP X2, CALL LIGHT WITHIN REACH. WILL CONTINUE POC.
[2022-04-18] MEDS: TAMOXIFEN CITRATE 10 MG TABLET PO SCH (21:19)
--- NOTE | 2022-04-18 22:00 | NUR ---
SUPERVISOR TAPING NOTES BLOOD TRANSFUSION COMPLETED. NO ASE NOTED. ALL VITALS WNL.
[2022-04-19] VITALS: BP 124/58
[2022-04-19] MEDS: CEFEPIME 2 GM in IV D5W 100 ML IV SCH (02:26)
[2022-04-19 04:00] VITALS: BP 137/64
[2022-04-19 04:46] VITALS: BP 137/64
--- NOTE | 2022-04-19 05:26 | NUR ---
CURB AND GUTTER LABORER NOTES BRIANDA FROM [facility] CALLED AND NOTIFIED THAT PICK-UP IS CHANGED TO [id number]. WILL ENDORSE TO AM NURSE, PATIENT AWARE.
[2022-04-19 06:35] LABS: EOSINOPHILS % (AUTO) 0.3 % (0.0-6.0); HEMATOCRIT 28 % (33-45); HEMOGLOBIN 9.5 g/dL (11.5-14.8); LYMPHOCYTES # (AUTO) 2.2 K/uL (0.8-4.8); LYMPHOCYTES % (AUTO) 28.1 % (20.0-44.0); MEAN CORPUSCULAR HGB CONC 34 g/dl (31.0-36.0); MEAN CORPUSCULAR VOLUME 89 fL (82-100); MONOCYTES # (AUTO) 4.5 K/uL (0.1-1.30); MONOCYTES % (AUTO) 57.6 % (2.0-12.0); NEUTROPHILS # (AUTO) 1.1 K/uL (1.8-8.9); RED BLOOD CELL COUNT(AUTO) 3.19 MIL/uL (4.0-5.2); WHITE BLOOD COUNT (AUTO) 7.9 K/uL (4.3-11.0)
[2022-04-19 06:43] LABS: PLATELET COUNT (AUTO) 52 K/uL (150-450)
--- NOTE | 2022-04-19 06:44 | NUR ---
SENIOR PRODUCT DEVELOPMENT ENGINEER NOTES RECEIVED CALL FROM LAB, PLATELET 52. WILL CONTINUE TO MONITOR AND ENDORSE TO NEXT NURSE. PARAMETER: TRANSFUSE 1 UNIT IF <20
--- NOTE | 2022-04-19 06:49 | NUR ---
PILLOWCASE TURNER CLOSING NOTES PATIENT LAYING IN BED AWAKE. ABLE TO VERBALIZE SOME NEEDS. NO ACUTE EVENTS DURING THE NIGHT. NO CARDIAC OR RESPIRATORY DISTRESS. SATURATING AT 96%-99% IN ROOM AIR, NO SOB OR NOTED. AFEBRILE. NO ACTIVE BLEEDING AT THIS TIME. ON TELE MONITOR READING SINUS RHYTHM WITH PAC AT 78 BPM. HAS RIGHT FOREARM IV ACCESS #22G WITH D5NS RUNNING AT 75 ML/HR. INTACT, PATENT AND FLUSHING. ALL DUE MEDS GIVEN AND NEEDS ATTENDED. SAFETY PRECAUTIONS MAINTAINED. WILL ENDORSE TO NEXT SHIFT FOR ROSSY.
[2022-04-19 06:57] LABS: CALCIUM, SERUM 7.8 mg/dL (8.5-10.1); CARBON DIOXIDE 21 mmol/L (21-32); CHLORIDE 107 mmol/L (98-107); CREATININE 1.2 mg/dL (0.6-1.3); GLUCOSE 146 mg/dL (74-106); POTASSIUM 3.7 mmol/L (3.5-5.1); SODIUM SERUM 141 mmol/L (136-145); UREA NITROGEN, BLOOD 17 mg/dL (7-18)
--- NOTE | 2022-04-19 07:00 | NUR ---
CUB REPORTER OPENING NOTES PATIENT LAYING IN BED, A/O X 3, GREEK SPEAKING, TOLERATING WELL ON ROOM AIR WITH NO S/S RESPIRATORY DISTRESS. NO COMPLAINTS OF PAIN OR DISCOMFORT AT THIS TIME. TELE MONITOR IN PLACE READING NSR 82 WITH PAC. R FOREARM # 22 G IV WITH D5NS INFUSING @ 75 ML/HR. SAFETY MEASURES IN PLACE: BED IN LOWEST LOCKED POSITION, SIDE RAILS UP X 2, CALL LIGHT WITHIN REACH. WILL CONTINUE TO MONITOR.
[2022-04-19 07:06] LABS: D-DIMER 35.2 mg/L(FEU (0.17-0.50)
[2022-04-19 08:36] VITALS: BP 122/56
[2022-04-19] MEDS: ACYCLOVIR 200 MG CAPSULE PO SCH (08:36)
[2022-04-19] MEDS: DOCUSATE SODIUM 100 MG CAPSULE PO SCH (08:36)
[2022-04-19] MEDS: LEVOTHYROXINE SODIUM 50 MCG TABLET PO SCH (08:37)
[2022-04-19] MEDS: ALLOPURINOL 100 MG TABLET PO SCH (08:37)
[2022-04-19] MEDS: PANTOPRAZOLE 40 MG/PACK PACK PO SCH (08:37)
[2022-04-19] MEDS: VORICONAZOLE 200 MG TABLET PO SCH (09:02)
--- NOTE | 2022-04-19 09:30 | NUR ---
HARD ROCK DRILL OPERATORRESIDENTIAL DIRECTOR NOTES PATIENT MADE AWARE OF MD DISCHARGE ORDER AND INSTRUCTIONS. PATIENT VERBALIZED UNDERSTANDING OF MD DISCHARGE INSTRUCTIONS AND SIGNED DISCHARGE INSTRUCTIONS SHEET. PATIENT ALSO VERBALIZED POSSESSION OF ALL BELONGINGS AND SIGNED BELONGINGS LIST. ID BANDS REMOVED, IV LINE SALINE LOCKED AND LEFT IN PLACE FOR LATERAL TRANSFER. TELE BOX REMOVED. PATIENT TRANSFERRED TO [facility] WITHOUT INCIDENT AND TRANSPORTED OFF OF UNIT ACCOMPANIED BY 2 REHABILITATOR. REPORT CALLED TO [facility] [phone] AND SPOKE WITH CECILIO ALVA. PATIENT STABLE AT TIME OF DISCHARGE. ALL DISCHARGE PAPERWORK AND IMAGING CD PROVIDED TO TRANSPORT STAFF.
[2022-04-19 11:16] LABS: BAND % (MANUAL) 2 % (0.0-5.0); BASOPHILS % (MANUAL) 0 % (0.0-2.0); EOSINOPHILS % (MANUAL) 0 % (0-4); LYMPHOCYTES % (MANUAL) 38 % (16-48); MONOCYTES % (MANUAL) 42 % (0-11.0); NEUTROPHILS % (MANUAL) 18 (42-76)
== END 2022-04-19 10:00 | disposition short-term general hospital (02) | DRG 378 ==
LOC: ER 13:46 → TELE 20:07 → UNDODISIN 04-12 13:15
PROVIDERS: ADMIT Internal Medicine; ATTEND Internal Medicine
PROC: 30233N1 Transfusion of Nonautologous Red Blood Cells into Peripheral Vein, Percutaneous Approach (ICD-10-PCS; 2022-04-05)
PROC: 30233R1 Transfusion of Nonautologous Platelets into Peripheral Vein, Percutaneous Approach (ICD-10-PCS; 2022-04-06)
PROC: 0W3P8ZZ Control Bleeding in Gastrointestinal Tract, Via Natural or Artificial Opening Endoscopic (ICD-10-PCS; principal; 2022-04-07)
PROC: 30233M1 Transfusion of Nonautologous Plasma Cryoprecipitate into Peripheral Vein, Percutaneous Approach (ICD-10-PCS; 2022-04-10)
PROC: 05HB33Z Insertion of Infusion Device into Right Basilic Vein, Percutaneous Approach (ICD-10-PCS; 2022-04-18)
DX: K31.82 Dieulafoy lesion (hemorrhagic) of stomach and duodenum (principal); C92.00 Acute myeloblastic leukemia, not having achieved remission; D62 Acute posthemorrhagic anemia; D68.9 Coagulation defect, unspecified; Z85.3 Personal history of malignant neoplasm of breast; Z90.11 Acquired absence of right breast and nipple; Z85.028 Personal history of other malignant neoplasm of stomach; E03.9 Hypothyroidism, unspecified; I10 Essential (primary) hypertension; K76.0 Fatty (change of) liver, not elsewhere classified; Z79.899 Other long term (current) drug therapy; E66.9 Obesity, unspecified
CPT/HCPCS: 36415; 71045-TC; 80048-TC; 80076-TC; 82378; 82607-TC; 82728-TC; 82784; 83540-TC; 83605-TC; 83735-TC; 84155; 84165; 84484-TC; 85025-TC; 85027-TC; 85385-TC; 85396; 85730-TC; 86140-TC; 86225; 86235; 86300; 86334; 86431-TC; 86706; 86803; 86850-TC; 87040-TC; 87081-TC; 87340; 97110-TC; 97116-TC; 97530-TC; A6253; A6403; C9113; C9803; G0378; J0692; J1200; J1756; J2270; J2405; J2704; J3490; J7030; J7042; J7050; J7060; P9012; P9016; P9034; U0003